=== PATIENT | male | born 1935 | race Caucasian/White ===

== ENCOUNTER → 2017-12-17 | Outpatient (CLI) | payer BC | END | disposition home or self-care (01) | LOC: C.LABSPEC 10:38 | PROVIDERS: ATTEND Family Medicine | DX: R33.9 Retention of urine, unspecified (principal); N39.0 Urinary tract infection, site not specified ==

== ENCOUNTER 2019-10-04 12:43 | Inpatient (IN) ==
[~2019-10-04 12:43] MED LIST: RAPID SEQUENCE INDUCTION BAG ONE
[2019-10-04] MEDS ORDERED: ETOMIDATE 2 MG/ML 20 ML VIAL IV ONE ×2 (12:45→19:40)
[2019-10-04] MEDS ORDERED: LORazepam 2 MG/4 ML VIAL IV ONE (12:50)
[2019-10-04] MEDS ORDERED: LACTATED RINGER'S 1,000 ML IV ONE (12:52)
[2019-10-04] MEDS ORDERED: CEFEPIME 2,000 MG/20 ML VIAL IV STA (12:52)
[2019-10-04] MEDS ORDERED: VANCOMYCIN HCL 1,750 MG in SODIUM CHLORIDE 0.9% 500 ML IV STA (13:01)
[2019-10-04] MEDS ORDERED: SODIUM CHLORIDE 0.9% 1000ML 1,000 ML IV ONE (13:09)
[2019-10-04] MEDS ORDERED: SODIUM CHLORIDE 0.9% 1000ML 500 ML IV ONE (13:09)
[2019-10-04 13:10] LABS: Basophils # (auto) 0.01 K/uL (0-0.2); Basophils % (auto) 0.1 %; Hematocrit (blood only) 48.4 % (42-52); Hemoglobin 15.6 g/dL (14.0-18.0); Immature Granulocytes # (auto) 0.05 K/uL (0.00-0.02); Immature Granulocytes % (auto) 0.4 %; Lymphocytes # (auto) 0.62 K/uL (1.2-3.4); Lymphocytes % (auto) 4.8 %; Mean Corpuscular Hemoglobin 31.7 pg (25-34); Mean Corpuscular Hgb Conc 32.2 g/dL (32-36); Mean Corpuscular Volume 98.4 fL (80-100); Mean Platelet Volume 10.5 fL (7.4-10.4); Monocytes # (auto) 0.53 K/uL (0.11-0.59); Monocytes % (auto) 4.1 %; Neutrophils # (auto) 11.84 K/uL (1.4-6.5); Neutrophils % (auto) 90.6 %; Platelet Count 233 K/uL (130-400); RDW Coefficient of Variation 14.3 % (11.5-14.5); RDW Standard Deviation 51.1 fL (36.4-46.3); Red Blood Count 4.92 M/uL (4.7-6.1); White Blood Count 13.05 K/uL (4.8-10.8)
[2019-10-04] MEDS ORDERED: ALBUT/IPRATROP 3MG/0.5MG NEB 3 ML VIAL NEB ONE (13:20)
[2019-10-04 13:25] LABS: INR 1.3 (0.9-1.1); Partial Thromboplastin Ratio 1.1; Partial Thromboplastin Time 29.6 Seconds (21.0-31.0)
[2019-10-04 13:28] LABS: Alanine Aminotransferase 22 U/L (12-78); Aspartate Aminotransferase 23 U/L (15-37); BUN Creatinine Ratio 17.8 (10-20); Blood Urea Nitrogen 23 mg/dl (7-18); Calcium 9.4 mg/dl (8.5-10.1); Carbon Dioxide 33 mmol/L (21-32); Chloride 100 mmol/L (98-107); Est GFR (African American) 58.6; Est GFR (Non-African American) 50.6; Glucose 126 mg/dl (70-99); Magnesium 2.1 mg/dl (1.8-2.4); Potassium 4.5 mmol/L (3.5-5.1); Sodium 136 mmol/L (136-145)
[2019-10-04 13:33] LABS: Albumin Globulin Ratio 0.6 (0.9-2); Alkaline Phosphatase 88 U/L (45-117); Bilirubin,Total 0.7 mg/dl (0.2-1); Globulin 4.8 gm/dl (2.5-4.0); Total Protein 7.8 gm/dl (6.4-8.2); Troponin I < 0.015 ng/ml (0-0.045)
[2019-10-04 13:34] LABS: iSTAT Arterial Blood Gas HCO3 32 meg/L (19-24); iSTAT Arterial Blood Gas pCO2 91 mmHg (35-46); iSTAT Arterial Blood Gas pH 7.16 (7.35-7.45); iSTAT Arterial Blood Gas pO2 64 mmHg (80-95); iSTAT Carbon Dioxide 35 mmol/L (24-31); iSTAT Hematocrit 48 % (42-52); iSTAT Hemoglobin 16.3 g/dl (14.0-18.0); iSTAT Potassium 4.5 mmol/L (3.3-5.0); iSTAT Sodium 137 mmol/L (135-144)
--- NOTE | 2019-10-04 13:37 | XRay Report ---
XR chest 1V portable CLINICAL HISTORY: Sepsis. COMPARISON STUDY: No previous studies for comparison. FINDINGS: Tip of endotracheal tube is 3.7 cm above the wade. There is no pneumothorax. Skin fold pr ojects over the left hemithorax. Left basilar consolidation with a suspected small left pleural effus ion is noted. There is no evidence for pulmonary edema. Cardiac size is within normal limits. Lucency projecting over the upper abdomen. There is equivocal visualization of the falciform ligament. IMPRESSION: 1. Tip of endotracheal tube 3.7 cm above the wade. 2. Left basilar consolidation which suggests pneumonia/aspiration. Small left pleural effusion. No pn eumothorax. 3. Lucency projecting over the upper abdomen. This is probably artifactual however pneumoperitoneum c annot be excluded. Findings discussed with Dr. Lay at time of dictation. ACT 112: Negative or not required by law. Electronically signed by: Nick Griffith M.D. 10/04/2019 1:36 PM
[2019-10-04 13:46] LABS: Appearance Urine Cloudy (Clear); Bacteria Urine Automated Negative (Negative); Bilirubin Urine Negative (Negative); Blood Urine 2+ (Negative); Color Urine Dark Yellow; Epithelial Cell Urine Auto 0-5 /lpf (0-5); Glucose Urine UA Negative (Negative); Ketones Urine 1+ (Negative); Leukocyte Esterase Urine 1+ (Negative); Nitrite Urine Negative (Negative); Protein Urine 1+ (Negative); RBC Urine Automated 0-4 /hpf (0-4); Specific Gravity Urine 1.024 (1.000-1.030); Urobilinogen Urine Negative (Negative); WBC Urine Automated >30 /hpf (0-5)
[2019-10-04] MEDS ORDERED: fentaNYL citrate 100 MCG/2 ML VIAL IV STA (13:49)
[2019-10-04] MEDS ORDERED: LORazepam 1 MG/2 ML VIAL IV STA ×2 (13:49→15:09)
[2019-10-04] MEDS ORDERED: fentaNYL citrate 100 MCG/2 ML VIAL ONE ×2 (13:51→17:45)
--- NOTE | 2019-10-04 13:58 | XRay Report ---
XR chest 1V portable HISTORY: 84 years-old Male s/p central line left sc status post placement of a left subclavian centr al venous catheter COMPARISON: Chest radiograph of same day at 1:01 PM TECHNIQUE: Semierect AP view of the chest FINDINGS: Status post placement of a left subclavian central venous catheter, distal tip terminating to the rig ht of midline in the expected location of the proximal SVC. Endotracheal tube overlies the midline, 4 .4 cm superior to the wade. Calcified plaque of the thoracic aortic arch. Cardiac silhouette is enl arged, unchanged. Persistent left greater than right bibasilar consolidation with mildly improved aer ation of the lung bases. Mild interstitial coarsening. Lucency projecting over the upper abdomen rede monstrated. Degenerative changes of the shoulders and spine. IMPRESSION: 1. Status post placement of a left subclavian central venous catheter, distal tip terminating in the expected location of the mid SVC. No postprocedural pneumothorax. 2. Endotracheal tube terminates 4.4 cm superior to the wade. 3. Left greater than right bibasilar consolidation, mildly improved from comparison. 4. Persistent lucency of the upper abdomen, pneumoperitoneum versus artifact are considerations. ACT 112: Negative or not required by law. The above report was generated using voice recognition software. It may contain grammatical, syntax o r spelling errors. Electronically signed by: Dimas Jarvis M.D. 10/04/2019 1:57 PM
--- NOTE | 2019-10-04 14:01 | Emergency Department Note ---
Entered by Oksana Valdez acting as a scribe for Merritt Lay DO History of Present Illness General Chief complaint: Respiratory Distress Source: EMS Mode of arrival: EMS History of Present Illness Provider complaint: respiratory distress Onset (ago): hour(s) ([employer]) Location: chest Relieved By: + none Exacerbated By: + none Associated symptoms: + cough The patient is a 84 year old male who presents to the Emergency Room with complaints of respiratory distress which started prior to arrival. Per EMS, the patient developed a cough over the past several days. They report that the patient was coughing up green mucous. They state that the patient was found prior to the call with an O2 stat in the 60s. On arrival, they report that the patient's blood sugar was 113 and his heart rate was in the 150s. They mention that the patient was on CPAP for 10-15 minutes which did not alleviate his symptoms. They note that the patient is a resident of [facility]. Home Medications Home Medications Medication Instructions Recorded Confirmed Type atorvastatin 10 mg tablet 10 mg PO QDD tab 12/20/18 10/04/19 History docusate sodium 100 mg tablet 100 mg PO BID tab 12/20/18 10/04/19 History ferrous sulfate 325 mg (65 mg 325 mg PO QDB tab 12/20/18 10/04/19 History iron) tablet finasteride 5 mg tablet 5 mg PO DAILY #30 tab 12/20/18 10/04/19 History tamsulosin 0.4 mg capsule 0.4 mg PO QDD #30 cap 12/20/18 10/04/19 History acetaminophen [Tylenol] 650 mg PO Q4H PRN 10/04/19 10/04/19 History bisacodyl [Dulcolax (bisacodyl)] 10 mg ND DAILY PRN 10/04/19 10/04/19 History cholecalciferol (vitamin D3) 3,000 unit PO DAILY 10/04/19 10/04/19 History [Vitamin D3] cyanocobalamin (vitamin B-12) 1,000 mcg PO DAILY 10/04/19 10/04/19 History dextromethorphan-guaifenesin 5 ml PO Q6H 10/04/19 10/04/19 History heparin (porcine) 5,000 unit SUBCUT Q12H 10/04/19 10/04/19 History ipratropium-albuterol 3 ml INHALATION QID 10/04/19 10/04/19 History levofloxacin 500 mg PO DAILY 10/04/19 10/04/19 History levothyroxine [Synthroid] 150 mcg PO DAILY 10/04/19 10/04/19 History metoprolol succinate [Toprol XL] 50 mg PO DAILY 10/04/19 10/04/19 History pantoprazole [Protonix] 40 mg PO DAILYBB 10/04/19 10/04/19 History polyethylene glycol 3350 [Miralax] 17 g PO QDL PRN 10/04/19 10/04/19 History prednisone 10 mg PO TID 10/04/19 10/04/19 History sennosides-docusate sodium [Senna 1 tab-cap PO QDL PRN 10/04/19 10/04/19 History with Docusate Sodium] sodium phosphates [Enema] 133 ml ND DAILY PRN 10/04/19 10/04/19 History Allergies Allergy/AdvReac Type Severity Reaction Status Date / Time No Known Drug Allergies Allergy Verified 10/04/19 13:39 Past Med/Surg History Medical History (Updated 10/04/19 @ 15:02 by Merritt Lay DO) Anemia (Acute) Congestive heart failure (Acute) Hyperlipidemia (Acute) Hypertension (Acute) Hypothyroidism (Acute) Surgical History No significant past surgical history Social History Feels Safe at Home: Yes Smoking Status: Never smoker Review of Systems See HPI for pertinent positives & negatives. and A total of 10 systems reviewed and were otherwise negative Physical Exam Vital Signs Vital Signs - 24 hr 10/04/19 12:42 10/04/19 12:46 10/04/19 12:49 Temperature 37.9 C H Temperature Source Rectal Pulse Rate 121 H 132 H 132 H Pulse Rate [Apical] Pulse Rate from SpO2 Sensor 133 H Pulse Rhythm Pulse Rhythm [Apical] Respiratory Rate 42 H 32 H Respiratory Effort / Characteristics Short of Breath Respiratory Depth Shallow Respiratory Pattern Rapid/Shallow Blood Pressure 150/87 H 150/87 H Blood Pressure [Left Arm] Blood Pressure Mean 108 111 Blood Pressure Mean [Left Arm] Pulse Oximetry 82 L 78 L 84 L Oxygen Delivery Method BiPAP BiPAP Fraction of Inspired Oxygen 100 SaO2/FiO2 Ratio Sepsis Recent Fever Within 48 Hours Yes Sepsis New/Unexplained Change in Mental Status Yes Sepsis Action Taken by Nursing Physician Notified End-Tidal CO2 43 10/04/19 12:52 10/04/19 12:56 10/04/19 13:00 Temperature Temperature Source Pulse Rate 120 H 117 H 123 H Pulse Rate [Apical] Pulse Rate from SpO2 Sensor 119 H 119 H Pulse Rhythm Pulse Rhythm [Apical] Respiratory Rate 15 Respiratory Effort / Characteristics Respiratory Depth Respiratory Pattern Blood Pressure 94/60 L 96/81 L Blood Pressure [Left Arm] Blood Pressure Mean 62 85 Blood Pressure Mean [Left Arm] Pulse Oximetry 90 87 L 86 L Oxygen Delivery Method Mechanical Vent Mechanical Vent Fraction of Inspired Oxygen 100 SaO2/FiO2 Ratio Sepsis Recent Fever Within 48 Hours Sepsis New/Unexplained Change in Mental Status Sepsis Action Taken by Nursing End-Tidal CO2 49 55 47 10/04/19 13:05 10/04/19 13:10 10/04/19 13:15 Temperature Temperature Source Pulse Rate 123 H 128 H 123 H Pulse Rate [Apical] Pulse Rate from SpO2 Sensor 121 H 112 H 107 H Pulse Rhythm Pulse Rhythm [Apical] Respiratory Rate Respiratory Effort / Characteristics Respiratory Depth Respiratory Pattern Blood Pressure 86/56 L 77/59 L 69/54 L Blood Pressure [Left Arm] Blood Pressure Mean 81 64 64 Blood Pressure Mean [Left Arm] Pulse Oximetry 87 L 85 L 86 L Oxygen Delivery Method Mechanical Vent Mechanical Vent Mechanical Vent Fraction of Inspired Oxygen SaO2/FiO2 Ratio Sepsis Recent Fever Within 48 Hours Sepsis New/Unexplained Change in Mental Status Sepsis Action Taken by Nursing End-Tidal CO2 42 39 34 10/04/19 13:19 10/04/19 13:25 10/04/19 13:26 Temperature Temperature Source Pulse Rate 124 H Pulse Rate [Apical] Pulse Rate from SpO2 Sensor 107 H Pulse Rhythm Pulse Rhythm [Apical] Respiratory Rate 20 22 Respiratory Effort / Characteristics Mechanically Ventilated Respiratory Depth Respiratory Pattern Blood Pressure 110/52 L Blood Pressure [Left Arm] Blood Pressure Mean 91 Blood Pressure Mean [Left Arm] Pulse Oximetry 95 94 Oxygen Delivery Method Mechanical Vent Mechanical Vent Fraction of Inspired Oxygen 100 SaO2/FiO2 Ratio Sepsis Recent Fever Within 48 Hours Sepsis New/Unexplained Change in Mental Status Sepsis Action Taken by Nursing End-Tidal CO2 38 10/04/19 13:30 10/04/19 13:35 10/04/19 13:38 Temperature Temperature Source Pulse Rate 115 H 124 H 125 H Pulse Rate [Apical] Pulse Rate from SpO2 Sensor 118 H 121 H Pulse Rhythm Regular Pulse Rhythm [Apical] Respiratory Rate 22 Respiratory Effort / Characteristics Respiratory Depth Respiratory Pattern Blood Pressure 105/71 109/76 Blood Pressure [Left Arm] Blood Pressure Mean 81 92 Blood Pressure Mean [Left Arm] Pulse Oximetry 96 97 97 Oxygen Delivery Method Mechanical Vent Mechanical Vent Mechanical Vent Fraction of Inspired Oxygen 100 SaO2/FiO2 Ratio 97 Sepsis Recent Fever Within 48 Hours Sepsis New/Unexplained Change in Mental Status Sepsis Action Taken by Nursing End-Tidal CO2 47 40 10/04/19 13:40 10/04/19 13:45 10/04/19 13:50 Temperature Temperature Source Pulse Rate 120 H 111 H 117 H Pulse Rate [Apical] Pulse Rate from SpO2 Sensor 118 H 114 H 111 H Pulse Rhythm Pulse Rhythm [Apical] Respiratory Rate Respiratory Effort / Characteristics Respiratory Depth Respiratory Pattern Blood Pressure 115/78 98/66 L 106/61 Blood Pressure [Left Arm] Blood Pressure Mean 87 76 64 Blood Pressure Mean [Left Arm] Pulse Oximetry 96 98 96 Oxygen Delivery Method Mechanical Vent Mechanical Vent Mechanical Vent Fraction of Inspired Oxygen SaO2/FiO2 Ratio Sepsis Recent Fever Within 48 Hours Sepsis New/Unexplained Change in Mental Status Sepsis Action Taken by Nursing End-Tidal CO2 44 44 35 10/04/19 13:55 10/04/19 14:15 10/04/19 14:21 Temperature Temperature Source Pulse Rate 112 H Pulse Rate [Apical] 113 H Pulse Rate from SpO2 Sensor 115 H 98 H Pulse Rhythm Pulse Rhythm [Apical] Regular Respiratory Rate 21 20 Respiratory Effort / Characteristics Respiratory Depth Respiratory Pattern Blood Pressure 107/72 81/65 L Blood Pressure [Left Arm] 66/47 L Blood Pressure Mean 83 70 Blood Pressure Mean [Left Arm] 53 Pulse Oximetry 98 91 92 Oxygen Delivery Method Mechanical Vent Mechanical Vent Mechanical Vent Fraction of Inspired Oxygen SaO2/FiO2 Ratio Sepsis Recent Fever Within 48 Hours Sepsis New/Unexplained Change in Mental Status Sepsis Action Taken by Nursing End-Tidal CO2 10/04/19 14:25 10/04/19 14:30 10/04/19 14:35 Temperature Temperature Source Pulse Rate 106 H 121 H 111 H Pulse Rate [Apical] Pulse Rate from SpO2 Sensor 99 H 101 H 108 H Pulse Rhythm Pulse Rhythm [Apical] Respiratory Rate 21 Respiratory Effort / Characteristics Respiratory Depth Respiratory Pattern Blood Pressure 77/53 L 85/53 L 84/62 L Blood Pressure [Left Arm] Blood Pressure Mean 56 55 71 Blood Pressure Mean [Left Arm] Pulse Oximetry 95 96 97 Oxygen Delivery Method Mechanical Vent Mechanical Vent Mechanical Vent Fraction of Inspired Oxygen SaO2/FiO2 Ratio Sepsis Recent Fever Within 48 Hours Sepsis New/Unexplained Change in Mental Status Sepsis Action Taken by Nursing End-Tidal CO2 22 45 10/04/19 14:40 10/04/19 14:45 10/04/19 14:46 Temperature Temperature Source Pulse Rate 106 H 111 H 94 H Pulse Rate [Apical] Pulse Rate from SpO2 Sensor 111 H 107 H Pulse Rhythm Pulse Rhythm [Apical] Respiratory Rate 20 Respiratory Effort / Characteristics Respiratory Depth Respiratory Pattern Blood Pressure 94/80 L 109/62 Blood Pressure [Left Arm] Blood Pressure Mean 85 92 Blood Pressure Mean [Left Arm] Pulse Oximetry 98 98 94 Oxygen Delivery Method Mechanical Vent Mechanical Vent Fraction of Inspired Oxygen 100 SaO2/FiO2 Ratio Sepsis Recent Fever Within 48 Hours Sepsis New/Unexplained Change in Mental Status Sepsis Action Taken by Nursing End-Tidal CO2 35 35 35 10/04/19 14:50 Temperature Temperature Source Pulse Rate 113 H Pulse Rate [Apical] Pulse Rate from SpO2 Sensor 114 H Pulse Rhythm Pulse Rhythm [Apical] Respiratory Rate Respiratory Effort / Characteristics Respiratory Depth Respiratory Pattern Blood Pressure 102/70 Blood Pressure [Left Arm] Blood Pressure Mean 73 Blood Pressure Mean [Left Arm] Pulse Oximetry 98 Oxygen Delivery Method Mechanical Vent Fraction of Inspired Oxygen SaO2/FiO2 Ratio Sepsis Recent Fever Within 48 Hours Sepsis New/Unexplained Change in Mental Status Sepsis Action Taken by Nursing End-Tidal CO2 33 CONSTITUTIONAL/VITAL SIGNS: Reviewed / noted above. GENERAL: Non-toxic in appearance. INTEGUMENTARY: Warm, dry, and [place]. HEAD: Normocephalic. EYES: without scleral icterus or trauma. ENT/OROPHARYNX: clear and moist. LYMPHADENOPATHY/NECK: Is supple without lymphadenopathy or meningismus. RESPIRATORY: Significant respiratory depression. Coarse breath sounds bilaterally, scattered wheezes. CARDIOVASCULAR: Regular rate and rhythm. GI/ABDOMEN: Soft and mild tenderness. No organomegaly or pulsatile mass. No rebound or guarding. Normal bowel sounds. EXTREMITIES: Warm and well perfused. BACK: No CVA tenderness. NEUROLOGICAL: Intact without focal deficits. PSYCHIATRIC: normal affect. MUSCULOSKELETAL: Normally developed with good muscle tone. Procedures Free Text Procedures Left subclavian central line placement: This was placed due to the poor IV access and the necessity to administer m edications/IV fluids and to obtain blood work. The procedure was done under sterile technique. Gown, mask, hair net, sterile cover for ultrasound. It was performed under sterile ultrasound guidance. The Seldinger technique was used. The triple lumen catheter was placed without difficulty on the initial attempt. Each port flushed well and gave blood. The triple lumen catheter was sutured in place. A sterile dressing was placed on the catheter site. The patient tolerated the procedure well. No complication. Endotracheal intubation: Reason: Acute respiratory failure RSI was performed using 20 mg of IV etomidate. The patient was intubated successfully and without difficulty with a MAC 4 blade. The endotracheal tube was visualized passing through the cords. The patient did not have any hypoxia. There was no hypotension. There was no complication. End-tidal CO2 detection was present. Bilateral breath sounds are present with good tube humidification. No epigastric sounds. It was taped at 24 cm at the lip line. Size 8.0 tube. ABG Interpretation ABG Interpretation 1: ABG Results: pH is 7.16, PCO2 is 91, PO2 is 62 and bicarb is 32 Interpretation: respiratory acidosis Course Course 1244: The patient was evaluated in room B1, and a complete history and physical examination were performed. 1248: The patient was given 20 mg of Etomidate. 1250: Intubation was placed, see procedure not for details. 1252: The patient was given 2 doses of Ativan. 1325: A central line was placed, see procedural note for details. 1430: I reevaluated the patient and updated his family on his results. 1434: I reviewed the patient's case with Dr. Cross- [facility] ICU. He recommends that the patient be given 2 more doses of bicarbonate and be taken to the ICU. 1436: I reviewed the patient's case with Amanda Najera. Dr. Ferrari- Hospital[facility] will evaluate the patient for further management. Administered Medications Vancomycin HCl 1,750 mg/ (Sodium Chloride) 535 mls @ 200 mls/hr IV NOW STA Stop: 10/04/19 15:41 Last Admin: 10/04/19 13:30 Dose: 200 mls/hr Documented by: [id number] Norepinephrine Bitartrate 4 mg (/ Dextrose) 254 mls @ 15.24 mls/hr IV .[id number] STA; Protocol Stop: 10/05/19 07:10 Last Admin: 10/04/19 14:30 Dose: 0.05 mcg/kg/min, 15.2 mls/hr Documented by: [id number] Cosigned by: [id number] Discontinued Medications Albuterol (Duoneb) 12 ml NEB ONE ONE Stop: 10/04/19 13:21 Last Admin: 10/04/19 13:23 Dose: 12 ml Documented by: [id number] Etomidate (Amidate) 20 mg IV ONE ONE Stop: 10/04/19 12:46 Last Admin: 10/04/19 12:48 Dose: 20 mg Documented by: [id number] Fentanyl Citrate (Fentanyl Citrate) 50 mcg IV NOW STA Stop: 10/04/19 13:50 Last Admin: 10/04/19 13:56 Dose: 50 mcg Documented by: [id number] Fentanyl Citrate (Fentanyl Citrate) Confirm Administered Dose 100 mcg .ROUTE .STK-MED ONE Stop: 10/04/19 13:52 Last Admin: 10/04/19 14:16 Dose: Not Given Documented by: [id number] Lactated Ringer's (Lr) 1,000 mls @ 999 mls/hr IV .Q1H1M ONE Stop: 10/04/19 13:52 Last Infusion: 10/04/19 14:19 Dose: 0 mls/hr Documented by: [id number] Admin: 10/04/19 13:10 Dose: 999 mls/hr Documented by: [id number] Cefepime HCl (Maxipime) 2,000 mg in 20 mls @ 5 mls/min IV NOW STA; Protocol Stop: 10/04/19 12:55 Last Admin: 10/04/19 13:25 Dose: 5 mls/min Documented by: [id number] Lorazepam (Ativan) 2 mg in 4 mls @ 2 mls/min IV ONE ONE Stop: 10/04/19 12:51 Last Admin: 10/04/19 12:52 Dose: 2 mls/min Documented by: [id number] Sodium Chloride (Nss 1000ml) 500 mls @ 999 mls/hr IV .Q31M ONE Stop: 10/04/19 13:39 Last Infusion: 10/04/19 14:56 Dose: 0 mls/hr Documented by: [id number] Admin: 10/04/19 14:19 Dose: 999 mls/hr Documented by: [id number] Sodium Chloride (Nss 1000ml) 1,000 mls @ 999 mls/hr IV .Q1H1M ONE Stop: 10/04/19 14:09 Last Infusion: 10/04/19 14:19 Dose: 0 mls/hr Documented by: [id number] Admin: 10/04/19 12:55 Dose: 999 mls/hr Documented by: [id number] Lorazepam (Ativan) 1 mg in 2 mls @ 2 mls/min IV NOW STA Stop: 10/04/19 13:50 Last Admin: 10/04/19 13:56 Dose: 2 mls/min Documented by: [id number] Sodium Bicarbonate (Sodium Bicarbonate 8.4%) 100 meq IV NOW STA Stop: 10/04/19 14:34 Last Admin: 10/04/19 15:06 Dose: 100 meq Documented by: [id number] Critical Care Time Critical Care Time: Yes Total Critical Care Time: 90 I have personally spent 90 minutes of critical care time in the direct management of this patient. This includes bedside care, interpretation of diagnostic studies, and testing, discussion with consultants, patient, and family members, and other required patient management activities. This 90 minutes is in excess of all separately billable procedures. Medical Decision Making Differential Diagnosis Differential diagnosis: Etiologies such as cardiac ischemia, aortic dissection, pulmonary embolism, electrolyte abnormality, acidosis, tension pneumothorax, hypothermia, hypovolemia, intracranial event, as well as others were entertained. Medical Records Attestation: I reviewed the patient's medical records. Home Medications Current Medication List: was personally reviewed by me Laboratory Data Attestation: I reviewed the patient's lab results. Result diagrams: 10/04/19 12:55 10/04/19 12:55 Lab Results 10/04/19 10/04/19 10/04/19 Range/Units 12:55 12:55 12:55 WBC 13.05 H (4.8-10.8) K/uL RBC 4.92 (4.7-6.1) M/uL Hgb 15.6 (14.0-18.0) g/dL POC Hgb (14.0-18.0) g/dl Hct 48.4 (42-52) % POC Hct (42-52) % MCV 98.4 (80-100) fL MCH 31.7 (25-34) pg MCHC 32.2 (32-36) g/dL RDW Std Deviation 51.1 H (36.4-46.3) fL RDW Coeff of Regi 14.3 (11.5-14.5) % Plt Count 233 (130-400) K/uL MPV 10.5 H (7.4-10.4) fL Immature Gran % (Auto) 0.4 % Neut % (Auto) 90.6 % Lymph % (Auto) 4.8 % [facility] % (Auto) 4.1 % Eos % (Auto) 0.0 % Baso % (Auto) 0.1 % Immature Gran # (Auto) 0.05 H (0.00-0.02) K/uL Neut # (Auto) 11.84 H (1.4-6.5) K/uL Lymph # (Auto) 0.62 L (1.2-3.4) K/uL [facility] # (Auto) 0.53 (0.11-0.59) K/uL Eos # (Auto) 0.00 (0-0.5) K/uL Baso # (Auto) 0.01 (0-0.2) K/uL PT 13.0 H (9.0-12.0) Seconds INR 1.3 H (0.9-1.1) APTT 29.6 (21.0-31.0) Seconds PTT Ratio 1.1 POC pH (7.35-7.45) POC pCO2 (35-46) mmHg POC pO2 (80-95) mmHg POC HCO3 (19-24) ady/L POC Total CO2 (24-31) mmol/L POC Base Excess (-9-1.8) ady/L POC Sodium (135-144) mmol/L Sodium 136 (136-145) mmol/L POC Potassium (3.3-5.0) mmol/L Potassium 4.5 (3.5-5.1) mmol/L Chloride 100 (98-107) mmol/L Carbon Dioxide 33 H (21-32) mmol/L Anion Gap 3.0 (3-11) BUN 23 H (7-18) mg/dl Creatinine 1.29 (0.6-1.4) mg/dl Est Cr Clr Drug Dosing Not Reportable Est GFR ( Amer) 58.6 Est GFR (Non-Af Amer) 50.6 BUN/Creatinine Ratio 17.8 (10-20) Glucose 126 H (70-99) mg/dl Lactate (0.4-2.0) mmol/L Calcium 9.4 (8.5-10.1) mg/dl Magnesium 2.1 (1.8-2.4) mg/dl Total Bilirubin 0.7 (0.2-1) mg/dl AST 23 (15-37) U/L ALT 22 (12-78) U/L Alkaline Phosphatase 88 (45-117) U/L Troponin I < 0.015 (0-0.045) ng/ml Total Protein 7.8 (6.4-8.2) gm/dl Albumin 3.0 L (3.4-5.0) gm/dl Globulin 4.8 H (2.5-4.0) gm/dl Albumin/Globulin Ratio 0.6 L (0.9-2) Urine Color Urine Appearance (Clear) Urine pH (4.5-7.5) Ur Specific [place] (1.000-1.030) Urine Protein (Negative) Urine Glucose (UA) (Negative) Urine Ketones (Negative) Urine Blood (Negative) Urine Nitrite (Negative) Urine Bilirubin (Negative) Urine Urobilinogen (Negative) Ur Leukocyte Esterase (Negative) Urine WBC (Auto) (0-5) /hpf Urine RBC (Auto) (0-4) /hpf U Hyaline Cast (Auto) (0-5) /lpf U Epithel Cells (Auto) (0-5) /lpf Urine Bacteria (Auto) (Negative) Influenza Type A (PCR) (Neg) Influenza Type B (PCR) (Neg) 10/04/19 10/04/19 10/04/19 Range/Units 12:55 13:15 13:20 WBC (4.8-10.8) K/uL RBC (4.7-6.1) M/uL Hgb (14.0-18.0) g/dL POC Hgb 16.3 (14.0-18.0) g/dl Hct (42-52) % POC Hct 48 (42-52) % MCV (80-100) fL MCH (25-34) pg MCHC (32-36) g/dL RDW Std Deviation (36.4-46.3) fL RDW Coeff of Regi (11.5-14.5) % Plt Count (130-400) K/uL MPV (7.4-10.4) fL Immature Gran % (Auto) % Neut % (Auto) % Lymph % (Auto) % [facility] % (Auto) % Eos % (Auto) % Baso % (Auto) % Immature Gran # (Auto) (0.00-0.02) K/uL Neut # (Auto) (1.4-6.5) K/uL Lymph # (Auto) (1.2-3.4) K/uL [facility] # (Auto) (0.11-0.59) K/uL Eos # (Auto) (0-0.5) K/uL Baso # (Auto) (0-0.2) K/uL PT (9.0-12.0) Seconds INR (0.9-1.1) APTT (21.0-31.0) Seconds PTT Ratio POC pH 7.16 L* (7.35-7.45) POC pCO2 91 H (35-46) mmHg POC pO2 64 L (80-95) mmHg POC HCO3 32 H (19-24) ady/L POC Total CO2 35 H (24-31) mmol/L POC Base Excess 4.0 H (-9-1.8) ady/L POC Sodium 137 (135-144) mmol/L Sodium (136-145) mmol/L POC Potassium 4.5 (3.3-5.0) mmol/L Potassium (3.5-5.1) mmol/L Chloride (98-107) mmol/L Carbon Dioxide (21-32) mmol/L Anion Gap (3-11) BUN (7-18) mg/dl Creatinine (0.6-1.4) mg/dl Est Cr Clr Drug Dosing Est GFR ( Amer) Est GFR (Non-Af Amer) BUN/Creatinine Ratio (10-20) Glucose (70-99) mg/dl Lactate 1.4 (0.4-2.0) mmol/L Calcium (8.5-10.1) mg/dl Magnesium (1.8-2.4) mg/dl Total Bilirubin (0.2-1) mg/dl AST (15-37) U/L ALT (12-78) U/L Alkaline Phosphatase (45-117) U/L Troponin I (0-0.045) ng/ml Total Protein (6.4-8.2) gm/dl Albumin (3.4-5.0) gm/dl Globulin (2.5-4.0) gm/dl Albumin/Globulin Ratio (0.9-2) Urine Color Urine Appearance (Clear) Urine pH (4.5-7.5) Ur Specific [place] (1.000-1.030) Urine Protein (Negative) Urine Glucose (UA) (Negative) Urine Ketones (Negative) Urine Blood (Negative) Urine Nitrite (Negative) Urine Bilirubin (Negative) Urine Urobilinogen (Negative) Ur Leukocyte Esterase (Negative) Urine WBC (Auto) (0-5) /hpf Urine RBC (Auto) (0-4) /hpf U Hyaline Cast (Auto) (0-5) /lpf U Epithel Cells (Auto) (0-5) /lpf Urine Bacteria (Auto) (Negative) Influenza Type A (PCR) Pos for Influ A A* (Neg) Influenza Type B (PCR) Neg for Influ B (Neg) 10/04/19 10/04/19 Range/Units 13:30 14:31 WBC (4.8-10.8) K/uL RBC (4.7-6.1) M/uL Hgb (14.0-18.0) g/dL POC Hgb 13.9 L (14.0-18.0) g/dl Hct (42-52) % POC Hct 41 L (42-52) % MCV (80-100) fL MCH (25-34) pg MCHC (32-36) g/dL RDW Std Deviation (36.4-46.3) fL RDW Coeff of Regi (11.5-14.5) % Plt Count (130-400) K/uL MPV (7.4-10.4) fL Immature Gran % (Auto) % Neut % (Auto) % Lymph % (Auto) % [facility] % (Auto) % Eos % (Auto) % Baso % (Auto) % Immature Gran # (Auto) (0.00-0.02) K/uL Neut # (Auto) (1.4-6.5) K/uL Lymph # (Auto) (1.2-3.4) K/uL [facility] # (Auto) (0.11-0.59) K/uL Eos # (Auto) (0-0.5) K/uL Baso # (Auto) (0-0.2) K/uL PT (9.0-12.0) Seconds INR (0.9-1.1) APTT (21.0-31.0) Seconds PTT Ratio POC pH 7.20 L (7.35-7.45) POC pCO2 74 H (35-46) mmHg POC pO2 92 (80-95) mmHg POC HCO3 29 H (19-24) ady/L POC Total CO2 31 (24-31) mmol/L POC Base Excess 1.0 (-9-1.8) ady/L POC Sodium 138 (135-144) mmol/L Sodium (136-145) mmol/L POC Potassium 4.3 (3.3-5.0) mmol/L Potassium (3.5-5.1) mmol/L Chloride (98-107) mmol/L Carbon Dioxide (21-32) mmol/L Anion Gap (3-11) BUN (7-18) mg/dl Creatinine (0.6-1.4) mg/dl Est Cr Clr Drug Dosing Est GFR ( Amer) Est GFR (Non-Af Amer) BUN/Creatinine Ratio (10-20) Glucose (70-99) mg/dl Lactate (0.4-2.0) mmol/L Calcium (8.5-10.1) mg/dl Magnesium (1.8-2.4) mg/dl Total Bilirubin (0.2-1) mg/dl AST (15-37) U/L ALT (12-78) U/L Alkaline Phosphatase (45-117) U/L Troponin I (0-0.045) ng/ml Total Protein (6.4-8.2) gm/dl Albumin (3.4-5.0) gm/dl Globulin (2.5-4.0) gm/dl Albumin/Globulin Ratio (0.9-2) Urine Color Dark Yellow Urine Appearance Cloudy A (Clear) Urine pH 5.0 (4.5-7.5) Ur Specific [place] 1.024 (1.000-1.030) Urine Protein 1+ H (Negative) Urine Glucose (UA) Negative (Negative) Urine Ketones 1+ H (Negative) Urine Blood 2+ H (Negative) Urine Nitrite Negative (Negative) Urine Bilirubin Negative (Negative) Urine Urobilinogen Negative (Negative) Ur Leukocyte Esterase 1+ H (Negative) Urine WBC (Auto) >30 H (0-5) /hpf Urine RBC (Auto) 0-4 (0-4) /hpf U Hyaline Cast (Auto) 0 (0-5) /lpf U Epithel Cells (Auto) 0-5 (0-5) /lpf Urine Bacteria (Auto) Negative (Negative) Influenza Type A (PCR) (Neg) Influenza Type B (PCR) (Neg) Imaging Data Radiologist's Impression: Radiology results as stated below per my review and the radiologist's interpretation: XR chest 1V portable CLINICAL HISTORY: Sepsis. COMPARISON STUDY: No previous studies for comparison. FINDINGS: Tip of endotracheal tube is 3.7 cm above the wade. There is no pneumothorax. Skin fold projects over the left hemithorax. Left basilar consolidation with a suspected small left pleural effusion is noted. There is no evidence for pulmonary edema. Cardiac size is within normal limits. Lucency projecting over the upper abdomen. There is equivocal visualization of the falciform ligament. IMPRESSION: 1. Tip of endotracheal tube 3.7 cm above the wade. 2. Left basilar consolidation which suggests pneumonia/aspiration. Small left pleural effusion. No pneumothorax. 3. Lucency projecting over the upper abdomen. This is probably artifactual however pneumoperitoneum cannot be excluded. Findings discussed with Dr. Lay at time of dictation. ACT 112: Negative or not required by law. Electronically signed by: Nick Griffith M.D. 10/04/2019 1:36 PM XR chest 1V portable HISTORY: 84 years-old Male s/p central line left sc status post placement of a left subclavian central venous catheter COMPARISON: Chest radiograph of same day at 1:01 PM TECHNIQUE: Semierect AP view of the chest FINDINGS: Status post placement of a left subclavian central venous catheter, distal tip terminating to the right of midline in the expected location of the proximal SVC. Endotracheal tube overlies the midline, 4.4 cm superior to the wade. Calcified plaque of the thoracic aortic arch. Cardiac silhouette is enlarged, unchanged. Persistent left greater than right bibasilar consolidation with mildly improved aeration of the lung bases. Mild interstitial coarsening. Lucency projecting over the upper abdomen redemonstrated. Degenerative changes of the shoulders and spine. IMPRESSION: 1. Status post placement of a left subclavian central venous catheter, distal tip terminating in the expected location of the mid SVC. No postprocedural pneumothorax. 2. Endotracheal tube terminates 4.4 cm superior to the wade. 3. Left greater than right bibasilar consolidation, mildly improved from comparison. 4. Persistent lucency of the upper abdomen, pneumoperitoneum versus artifact are considerations. ACT 112: Negative or not required by law. The above report was generated using voice recognition software. It may contain grammatical, syntax or spelling errors. Electronically signed by: Dimas Jarvis M.D. 10/04/2019 1:[address] chest wo con CLINICAL HISTORY: 84 years-old Male with hypoxia, sob, sepsis. Acute hypoxia with shortness of breath TECHNIQUE: Multiaxial CT images of the chest were performed without contrast. A dose lowering technique was utilized adhering to the principles of ALARA. COMPARISON: CT abdomen and pelvis of same day, chest radiograph of same day FINDINGS: Endotracheal tube terminates 2.6 cm superior to the wade. 2.1 cm cystic lesion of the posterior right thyroid. Left subclavian central venous catheter distal tip terminates within the proximal SVC. The heart is mildly enlarged. Coronary arterial and aortic annular calcifications are noted. Trace pericardial effusion. Severe calcified plaque of the thoracic aorta. No aneurysm. Enlarged subcarinal lymph nodes measure up to 1.6 cm in short axis. Enlarged paratracheal lymph nodes measure up to 10 mm. Prominent AP window lymph nodes are also present. Trace right and small left pleural effusions. Left greater the right bibasilar consolidation with multifocal centrilobular and tree-in-bud micronodules. There is mild intralobular septal thickening throughout the right lung. Moderate bronchial wall thickening with bibasilar mucous plugging. Nonspecific stranding of the left retroperitoneum, partially imaged. Soft tissues are unremarkable. Degenerative changes of the shoulders and spine. No acute fracture or suspicious bone lesion. IMPRESSION: 1. Left greater than right bibasilar consolidation suggests pneumonia or aspiration pneumonitis. Additional multifocal centrilobular and tree-in-bud micronodules suggest additional areas of pneumonitis/bronchiolitis. 2. Intralobular septal thickening throughout the right lung suggests mild asymmetric interstitial pulmonary edema. 3. Trace right and small left pleural effusions. 4. Mild mediastinal adenopathy, likely reactive. 5. Endotracheal tube terminates 2.6 cm superior to the wade. 6. Bronchial wall thickening with bibasilar mucous plugging. ACT 112: Negative or not required by law. Electronically signed by: Dimas Jarvis M.D. 10/04/2019 2:[address] abd pelvis wo con CT DOSE: 1054.48 mGy.cm HISTORY: Dyspnea. Pain. sepsis TECHNIQUE: Multiaxial CT images of the abdomen and pelvis were performed without contrast. A dose lowering technique was utilized adhering to the principles of ALARA. COMPARISON STUDY: None. FINDINGS: Very small bilateral pleural effusions with bibasilar atelectatic change. A basilar inflammatory process is not excluded. Overall configuration of liver spleen and pancreas are unremarkable. Kidneys are within limitations of an unenhanced scan. Kidneys show no evidence for hydronephrosis. The bowel pattern overall is nonobstructive. There is a small amount of free fluid within the pelvic cul-de-sac. There is a Mendes catheter within the bladder. Slight increase in density of the omental and/or mesenteric fat as well as subcutaneous fat of the lateral rios of the abdomen and pelvis. This may be secondary to a prior treatment response. IMPRESSION: 1. Mild generalized nonobstructive ileus. 2. basilar parenchymal infiltrative change bilaterally versus atelectasis. 3. Trace amount of free fluid within the pelvic cul-de-sac presumably reactive. ACT 112: Negative or not required by law. The above report was generated using voice recognition software. It may contain grammatical, syntax or spelling errors. Electronically signed by: Cory Ward M.D. 10/04/2019 2:26 PM ECG Data Attestation: I personally reviewed and interpreted this ECG as follows: Indication: + SOB/dyspnea Rate (beats per minute): 132 Rhythm: + sinus tachycardia ECG ST segments: no ST elevation ECG Findings: no PVCs Blood Pressure Blood Pressure Findings: Low blood pressure Blood Pressure Disposition: further management by hospitalist JOMAR Narrative This is an 84-year-old male who presents to the ED with a chief complaint of bret rtness of breath and respiratory failure as well as weakness. The patient was sent from [facility]. The patient arrived via ambulance. The patient was in significant respiratory depression upon his arrival here. The patient was intubated shortly after his arrival using 20 mg of IV etomidate. A sepsis protocol was used and the patient was treated with 30 cc/kg of IV fluids as well as started on broad-spectrum antibiotics. No additional history was available from the patient as the patient was for the most part unresponsive upon his arrival and only responded to some painful stimuli. His respiratory rate was diminished and his air movement was poor. A chest x-ray as well as a CT scan of the chest suggest bilateral pneumonias. White blood cell count is 13. BUN is 23. Troponin was negative. EKG showed a sinus tach at a rate of 132. The patient did have a hypotensive episode prior to the completion of the 30 cc/kg normal saline bolus. After the bolus fluid was administered, the blood pressure did come up and maintain for short while and then his blood pressure dropped again into the 60 systolic range. The patient was started on norepinephrine for this. The patient was given a 1 hour DuoNeb treatment. He was also given IV cefepime and IV vancomycin. He was given some IV lorazepam and fentanyl for sedation. The flu swab came back positive for influenza A. An NG/OG tube was ordered and Tamiflu was ordered to go through the tube. The patient was intubated endotracheally during the initial phases of the resuscitation. He was ventilated. Initial ABG showed a significant respiratory acidosis. There was improvement of the respiratory acidosis on repeat ABG although this did persist. I did speak with Dr. Aparicio who recommended 2 A of IV sodium bicarb. This was ordered. During the patient's early resuscitation a left subclavian central line was also placed as per the procedures above. Impression & Plan Bilateral pneumonia, Hypoxia, Respiratory failure, Septic shock, Respiratory acidosis, Influenza A Discharge Plan Visit Data Chief Complaint: Respiratory Distress ED Provider: Merritt Lay Discharge Problem: Bilateral pneumonia, Hypoxia, Respiratory failure, Septic shock, Respiratory acidosis, Influenza A Patient Disposition: Being Evaluated by Hospitalist Forms Stand Alone Forms: My [facility] Prescriptions Prescriptions: No Action docusate sodium 100 mg tablet 100 mg PO BID RF: 0 ferrous sulfate 325 mg (65 mg iron) tablet 325 mg PO QDB RF: 0 atorvastatin [Lipitor] 10 mg tablet 10 mg PO QDD RF: 0 finasteride [Proscar] 5 mg tablet 5 mg PO DAILY Qty: 30 RF: 0 tamsulosin [Flomax] 0.4 mg capsule 0.4 mg PO QDD Qty: 30 RF: 0 prednisone 10 mg Tablet 10 mg PO TID RF: 0 ipratropium-albuterol 0.5 mg-3 mg(2.5 mg base)/3 mL Solution For Nebulization 3 ml INHALATION QID RF: 0 polyethylene glycol 3350 [Miralax] 17 gram Powder In Packet 17 g PO QDL PRN (Reason: Constipation) RF: 0 metoprolol succinate [Toprol XL] 50 mg Tablet Extended Release 24 Hr 50 mg PO DAILY RF: 0 dextromethorphan-guaifenesin 10-100 mg/5 mL Liquid 5 ml PO Q6H RF: 0 sennosides-docusate sodium [Senna with Docusate Sodium] 8.6-50 mg Tablet 1 tab-cap PO QDL PRN (Reason: Constipation) RF: 0 cyanocobalamin (vitamin B-12) 1,000 mcg Tablet 1,000 mcg PO DAILY RF: 0 bisacodyl [Dulcolax (bisacodyl)] 10 mg Suppository 10 mg ND DAILY PRN (Reason: Constipation) RF: 0 pantoprazole [Protonix] 40 mg Tablet,Delayed Release (Dr/Ec) 40 mg PO DAILYBB RF: 0 levothyroxine [Synthroid] 150 mcg Tablet 150 mcg PO DAILY RF: 0 Enema 19-7 gram/118 mL Enema 133 ml ND DAILY PRN (Reason: Constipation) RF: 0 levofloxacin 500 mg Tablet 500 mg PO DAILY RF: 0 heparin (porcine) 5,000 unit/mL Solution 5,000 unit SUBCUT Q12H RF: 0 cholecalciferol (vitamin D3) [Vitamin D3] 25 mcg (1,000 unit) Capsule 3,000 unit PO DAILY RF: 0 acetaminophen [Tylenol] 325 mg Capsule 650 mg PO Q4H PRN (Reason: Fever Or Pain) RF: 0 Referrals Referrals: Panfilo Unger MD [Primary Care Provider] - Discharge Problem: Bilateral pneumonia Qualifiers: Pneumonia type: due to unspecified organism Lung location: unspecified part of lung Qualified Code(s): J18.9 - Pneumonia, unspecified organism Respiratory failure Qualifiers: Chronicity: unspecified Respiratory failure complication: unspecified whether with hypoxia or hypercapnia Qualified Code(s): J96.90 - Respiratory failure, u nspecified, unspecified whether with hypoxia or hypercapnia The scribe's documentation has been prepared under my direction and personally reviewed by me in its entirety. I confirm that the note above accurately reflects all work, treatment, procedures, and medical decision making performed by me.
[2019-10-04 14:14] LABS: Cast Urine Automated 0 /lpf (0-5)
[2019-10-04 14:23] LABS: Influenza B virus by PCR Neg for Influ B (Neg)
--- NOTE | 2019-10-04 14:27 | CT Scan Report ---
CT chest wo con CLINICAL HISTORY: 84 years-old Male with hypoxia, sob, sepsis. Acute hypoxia with shortness of breat h TECHNIQUE: Multiaxial CT images of the chest were performed without contrast. A dose lowering techni que was utilized adhering to the principles of ALARA. COMPARISON: CT abdomen and pelvis of same day, chest radiograph of same day FINDINGS: Endotracheal tube terminates 2.6 cm superior to the wade. 2.1 cm cystic lesion of the posterior rig ht thyroid. Left subclavian central venous catheter distal tip terminates within the proximal SVC. Th e heart is mildly enlarged. Coronary arterial and aortic annular calcifications are noted. Trace noelle cardial effusion. Severe calcified plaque of the thoracic aorta. No aneurysm. Enlarged subcarinal lym ph nodes measure up to 1.6 cm in short axis. Enlarged paratracheal lymph nodes measure up to 10 mm. P rominent AP window lymph nodes are also present. Trace right and small left pleural effusions. Left greater the right bibasilar consolidation with mul tifocal centrilobular and tree-in-bud micronodules. There is mild intralobular septal thickening thro ughout the right lung. Moderate bronchial wall thickening with bibasilar mucous plugging. Nonspecific stranding of the left retroperitoneum, partially imaged. Soft tissues are unremarkable. D egenerative changes of the shoulders and spine. No acute fracture or suspicious bone lesion. IMPRESSION: 1. Left greater than right bibasilar consolidation suggests pneumonia or aspiration pneumonitis. Edy tional multifocal centrilobular and tree-in-bud micronodules suggest additional areas of pneumonitis/ bronchiolitis. 2. Intralobular septal thickening throughout the right lung suggests mild asymmetric interstitial pul monary edema. 3. Trace right and small left pleural effusions. 4. Mild mediastinal adenopathy, likely reactive. 5. Endotracheal tube terminates 2.6 cm superior to the wade. 6. Bronchial wall thickening with bibasilar mucous plugging. ACT 112: Negative or not required by law. Electronically signed by: Dimas Jarvis M.D. 10/04/2019 2:26 PM
--- NOTE | 2019-10-04 14:28 | CT Scan Report ---
CT abd pelvis wo con CT DOSE: 1054.48 mGy.cm HISTORY: Dyspnea. Pain. sepsis TECHNIQUE: Multiaxial CT images of the abdomen and pelvis were performed without contrast. A dose lo wering technique was utilized adhering to the principles of ALARA. COMPARISON STUDY: None. FINDINGS: Very small bilateral pleural effusions with bibasilar atelectatic change. A basilar inflamm atory process is not excluded. Overall configuration of liver spleen and pancreas are unremarkable. Kidneys are within limitations o f an unenhanced scan. Kidneys show no evidence for hydronephrosis. The bowel pattern overall is nonobstructive. There is a small amount of free fluid within the pelvic cul-de-sac. There is a Mendes catheter within the bladder. Slight increase in density of the omental and/or mesenteric fat as well as subcutaneous fat of the la teral riso of the abdomen and pelvis. This may be secondary to a prior treatment response. IMPRESSION: 1. Mild generalized nonobstructive ileus. 2. basilar parenchymal infiltrative change bilaterally versus atelectasis. 3. Trace amount of free fluid within the pelvic cul-de-sac presumably reactive. ACT 112: Negative or not required by law. The above report was generated using voice recognition software. It may contain grammatical, syntax or spelling errors. Electronically signed by: Cory Ward M.D. 10/04/2019 2:26 PM
[2019-10-04] MEDS ORDERED: STAT IV Infusion **Titration per Protocol STA (14:29)
[2019-10-04] MEDS ORDERED: NOREPINEPHRINE BIT INJ 8 MG in DEXTROSE 5% 500 ML IV SCH (14:30)
[2019-10-04] MEDS ORDERED: NOREPINEPHRINE (Adult STAT Only) 4 MG in D5W 250 ML IV STA (14:31)
[2019-10-04] MEDS ORDERED: SODIUM BICARB 8.4% INJ 50 MEQ/50 ML SYR IV STA (14:33)
[2019-10-04 14:49] LABS: iSTAT Arterial Blood Gas HCO3 29 meg/L (19-24); iSTAT Arterial Blood Gas pCO2 74 mmHg (35-46); iSTAT Arterial Blood Gas pO2 92 mmHg (80-95); iSTAT Carbon Dioxide 31 mmol/L (24-31); iSTAT Hematocrit 41 % (42-52); iSTAT Hemoglobin 13.9 g/dl (14.0-18.0); iSTAT Potassium 4.3 mmol/L (3.3-5.0); iSTAT Sodium 138 mmol/L (135-144)
[2019-10-04] MEDS ORDERED: OSELTAMIVIR PHOSPHATE 75 MG CAP PO STA (15:00)
[2019-10-04] MEDS ORDERED: OSELTAMIVIR PHOSPHATE SUSP 75 MG/12.5 ML UDP NG STA (15:02)
[2019-10-04] MEDS ORDERED: LORazepam 2 MG/4 ML VIAL IV STA (15:18)
--- NOTE | 2019-10-04 15:26 | History & Physical Report ---
Date of Service October 04, 2019 Assessment & Plan (1) Sepsis with acute hypoxic respiratory failure and septic shock: (2) Influenza A: (3) Bilateral pneumonia: (4) Respiratory acidosis: This an 84-year-old male who has significant PMH of atrial fibrillation, HTN, history of CHF, PVD, HLD, hypothyroidism, history of GI bleed, history of C. difficile, cognitive deficit who presents to ED secondary to being found unresponsive at [facility]. In ED initially SBP in the 150s however dropped significantly to SBP in the 60s requiring initiation of IV vasopressors norepinephrine. He was successfully intubated. Notable lab abnormalities include significant respiratory acidosis with pH 7.2, PCO2 74. Positive for influenza A. Lactic acid was WNL. WBC 13., H&H stable at 15.6 28.4, BUN 23, creatinine 1.29, glucose 126. Imaging revealed left greater than right bibasilar consolidation suggesting pneumonia or aspiration pneumonitis. Additional multifocal central lobar tree-in-bud micronodules suggest additional areas of pneumonitis/bronchiolitis. Mild mediastinal adenopathy, likely reactive. ET tube terminating 2.6 cm superior to the wade. Bronchial wall thickening with bibasilar mucous plugging. He received 2.5 L of IV fluid resuscitation along with broad-spectrum antibiotic initiation IV vancomycin and cefepime. NG tube order placed initiation of oral Tamiflu. Pt admitted to ICU continue broad spectrum IV antibiotics vanco and cefepime Tamiflu 75mg via NG started in ED continue vasopressors maintain map refer to juice mixer consultation for further treatment plan and management (5) Afib: on metoprolol off OAC / to GIB in 2018 (6) Congestive heart failure: hx of chronic diastolic CHF Last echo 2018 EF 57%, LA severely enlarged, calcified AV, no stenosis on metoprolol and losartan as outpt lasix has been D/C on prior discharge at [place] 09/24 monitor daily weights (7) Hypertension: pt hypotensive in setting of septic shock hold losartan, metoprolol (8) Hyperlipidemia: on statin as outpt (9) Hypothyroidism: continue synthroid to IV (10) Benign prostatic hyperplasia with urinary obstruction: on flomax and finasteride as outpt on hold (11) Dementia: hx of delirium (12) DVT prophylaxis: Heparin Disposition: admitted to ICU, case management consulted PCP Dr. Cornel, [facility] Pt was seen and examined in collaboration with Dr. Ferrari, please see addendum History of Present Illness Chief Complaint: Unresponsive at [facility]. Primary Care Provider: Panfilo Unger MD This an 84-year-old male who has significant PMH of atrial fibrillation, HTN, history of CHF, PVD, HLD, hypothyroidism, history of GI bleed, history of C. difficile, cognitive deficit who presents to ED secondary to being found unresponsive at [facility]. History unobtainable from patient as he is currently intubated. History obtained from nursing [facility] and ED provider. Patient was admitted to [facility] after short hospitalization at [facility] from 09/20 to 09/24. Admitted to [facility] on 09/24 secondary to frequent falls and lower extremity weakness, dysphagia and PCM. He had been doing well up until 09/30 when he developed URI-like symptoms. Sputum culture was obtained which returned positive for influenza A on 10/03. On 10/03 he was started on Levaquin 500 mg daily in which she has had 2 doses and prednisone 10 mg 3 times daily which he has had 3 doses. He started to become hypoxic on 10/01 requiring O2 via NC. He was last seen well by nursing at approximately 1045 with a very moist, wet but nonproductive cough. At approximately 12 PM he was found unresponsive by son, nupur with O2 saturations in the 60s. He was transferred to ED on BiPAP. Due to persistent hypoxia he required urgent mechanical ventilation and intubation. In ED initially SBP in the 150s however dropped significantly to SBP in the 60s requiring initiation of IV vasopressors norepinephrine. He was successfully intubated. Notable lab abnormalities include significant respiratory acidosis with pH 7.2, PCO2 74. Positive for influenza A. Lactic acid was WNL. WBC 13., H&H stable at 15.6 28.4, BUN 23, creatinine 1.29, glucose 126. Imaging revealed left greater than right bibasilar consolidation suggesting pneumonia or aspiration pneumonitis. Additional multifocal central lobar tree-in-bud micronodules suggest additional areas of pneumonitis/bronchiolitis. Mild mediastinal adenopathy, likely reactive. ET tube terminating 2.6 cm superior to the wade. Bronchial wall thickening with bibasilar mucous plugging. He received 2.5 L of IV fluid resuscitation along with broad-spectrum antibiotic initiation IV vancomycin and cefepime. NG tube order placed initiation of oral Tamiflu. Allergies Allergy/AdvReac Type Severity Reaction Status Date / Time No Known Drug Allergies Allergy Verified 10/04/19 13:39 Home Medications Home Medications Medication Instructions Recorded Confirmed Type atorvastatin 10 mg tablet 10 mg PO QDD tab 12/20/18 10/04/19 History docusate sodium 100 mg tablet 100 mg PO BID tab 12/20/18 10/04/19 History ferrous sulfate 325 mg (65 mg 325 mg PO QDB tab 12/20/18 10/04/19 History iron) tablet finasteride 5 mg tablet 5 mg PO DAILY #30 tab 12/20/18 10/04/19 History tamsulosin 0.4 mg capsule 0.4 mg PO QDD #30 cap 12/20/18 10/04/19 History acetaminophen [Tylenol] 650 mg PO Q4H PRN 10/04/19 10/04/19 History bisacodyl [Dulcolax (bisacodyl)] 10 mg KS DAILY PRN 10/04/19 10/04/19 History cholecalciferol (vitamin D3) 3,000 unit PO DAILY 10/04/19 10/04/19 History [Vitamin D3] cyanocobalamin (vitamin B-12) 1,000 mcg PO DAILY 10/04/19 10/04/19 History dextromethorphan-guaifenesin 5 ml PO Q6H 10/04/19 10/04/19 History heparin (porcine) 5,000 unit SUBCUT Q12H 10/04/19 10/04/19 History ipratropium-albuterol 3 ml INHALATION QID 10/04/19 10/04/19 History levofloxacin 500 mg PO DAILY 10/04/19 10/04/19 History levothyroxine [Synthroid] 150 mcg PO DAILY 10/04/19 10/04/19 History losartan 25 mg PO DAILY 10/04/19 10/04/19 History metoprolol succinate [Toprol XL] 50 mg PO DAILY 10/04/19 10/04/19 History pantoprazole [Protonix] 40 mg PO DAILYBB 10/04/19 10/04/19 History polyethylene glycol 3350 [Miralax] 17 g PO QDL PRN 10/04/19 10/04/19 History prednisone 10 mg PO TID 10/04/19 10/04/19 History sennosides-docusate sodium [Senna 1 tab-cap PO QDL PRN 10/04/19 10/04/19 History with Docusate Sodium] sodium phosphates [Enema] 133 ml KS DAILY PRN 10/04/19 10/04/19 History Past Med/Surg History Medical History (Updated 10/04/19 @ 16:13 by Anastasiia Ellison MD) Anemia (Acute) Atrial fib/flutter, transient Congestive heart failure (Acute) Dementia DVT prophylaxis History of CVA (cerebrovascular accident) History of GI bleed 01/16/2018 oozing gastric ulcer, clips placed repeat EGD 03/2018 healed gastric ulcer History of renal calculi Hx of Clostridium difficile infection Hyperlipidemia (Acute) Hypertension (Acute) Hypothyroidism (Acute) Protein calorie malnutrition PVD (peripheral vascular disease) Surgical History (Updated 10/04/19 @ 15:35 by Amanda Taveras PA-C) History of cataract extraction History of elbow surgery History of lithotripsy History of tonsillectomy and adenoidectomy History of total hip arthroplasty R ZA 11/29/2017 Family History Father COPD (chronic obstructive pulmonary disease) Mother Diabetes Uterine cancer Social History Preferred Language: Lebanese Communication Ability: Effective Communication Ability Comment: Intubated Beliefs That Will Affect Care: None marital status: / marital status details: passed ~ 2 weeks ago Current Living Situation: Rehab Current Living Situation Comment: [facility] Feels Safe at Home: Yes Smoking Status: Unknown if ever smoked Review of Systems Review of Systems: Unobtainable due to endotracheal tube Physical Exam Physical Exam: Constitutional: Elderly male, intubated and sedated, restless legs, ET tube in place, NAD Head: Normocephalic, Atraumatic Eyes: Pupils pinpoint but reactive to light, conjunctivae normal, anicteric sclerae ENMT: external ear and nose normal, oropharynx normal,+ ET tube in place Neck: trachea midline, no thyromegaly normal visual inspection Respiratory: + ET Tube, decreased BS at bases, +Bibasilar crackles noted, no wheeze or rhonchi. Normal insp/exp effort, no accessory muscle use Cardiovascular: tachycardic rate, S1, S2, no murmur, no edema , b/l cool lower peripheral extremities, dusky venous stasis, good b/l pedal and radial pulse +2 noted Vessels: no JVD or carotid bruit Chest: normal inspection of chest, LACW central cath placed Abdomen: normal bowel sounds, soft, nontender, no hepatosplenomegaly Musculoskeletal: no cyanosis or clubbing noted. unable to assess MSK given sedated stated Skin: no rashes, warm and dry normal turgor Neurologic: unable to assess Psychiatric: sedated, unable to assess Lymphatic: no cervical or axillary lymphadenopathy : +parikh draining octavio urine Results & Data Vital Signs (Past 12 Hours) Vital Signs Temp Pulse Pulse Resp BP BP Pulse Ox 10/04/19 14:50 113 H 102/70 98 10/04/19 14:46 94 H 20 94 10/04/19 14:45 111 H 109/62 98 10/04/19 14:40 106 H 94/80 L 98 10/04/19 14:35 111 H 84/62 L 97 10/04/19 14:30 121 H 85/53 L 96 10/04/19 14:25 106 H 21 77/53 L 95 10/04/19 14:21 113 H 20 66/47 L 92 10/04/19 14:15 112 H 21 81/65 L 91 10/04/19 13:55 107/72 98 10/04/19 13:50 117 H 106/61 96 10/04/19 13:45 111 H 98/66 L 98 10/04/19 13:40 120 H 115/78 96 10/04/19 13:38 125 H 22 97 10/04/19 13:35 124 H 109/76 97 10/04/19 13:30 115 H 105/71 96 10/04/19 13:26 22 94 10/04/19 13:25 124 H 110/52 L 95 10/04/19 13:19 20 10/04/19 13:15 123 H 69/54 L 86 L 10/04/19 13:10 128 H 77/59 L 85 L 10/04/19 13:05 123 H 86/56 L 87 L 10/04/19 13:00 123 H 96/81 L 86 L 10/04/19 12:56 117 H 94/60 L 87 L 10/04/19 12:52 120 H 15 90 10/04/19 12:49 132 H 150/87 H 84 L 10/04/19 12:46 132 H 32 H 78 L 10/04/19 12:42 37.9 C H 121 H 42 H 150/87 H 82 L Laboratory Results Short CBC 10/04/19 Range/Units 12:55 WBC 13.05 H (4.8-10.8) K/uL Hgb 15.6 (14.0-18.0) g/dL Hct 48.4 (42-52) % Plt Count 233 (130-400) K/uL BMP 10/04/19 12:55 Sodium 136 Potassium 4.5 Chloride 100 Carbon Dioxide 33 H BUN 23 H Creatinine 1.29 Glucose 126 H Calcium 9.4 Cardiac Enzymes 10/04/19 Range/Units 12:55 Troponin I < 0.015 (0-0.045) ng/ml Liver Function 10/04/19 Range/Units 12:55 Total Bilirubin 0.7 (0.2-1) mg/dl AST 23 (15-37) U/L ALT 22 (12-78) U/L Alkaline Phosphatase 88 (45-117) U/L Albumin 3.0 L (3.4-5.0) gm/dl Urine 10/04/19 Range/Units 13:30 Urine Color Dark Yellow Urine Appearance Cloudy A (Clear) Urine pH 5.0 (4.5-7.5) Ur Specific Sebastian 1.024 (1.000-1.030) Urine Protein 1+ H (Negative) Urine Glucose (UA) Negative (Negative) Diagnostic Findings CXR: IMPRESSION: 1. Tip of endotracheal tube 3.7 cm above the wade. 2. Left basilar consolidation which suggests pneumonia/aspiration. Small left pleural effusion. No pneumothorax. 3. Lucency projecting over the upper abdomen. This is probably artifactual however pneumoperitoneum cannot be excluded. Findings discussed with Dr. Lay at time of dictation. CT abd/pelvis: IMPRESSION: 1. Mild generalized nonobstructive ileus. 2. basilar parenchymal infiltrative change bilaterally versus atelectasis. 3. Trace amount of free fluid within the pelvic cul-de-sac presumably reactive. Chest CT: IMPRESSION: 1. Left greater than right bibasilar consolidation suggests pneumonia or aspiration pneumonitis. Additional multifocal centrilobular and tree-in-bud micronodules suggest additional areas of pneumonitis/bronchiolitis. 2. Intralobular septal thickening throughout the right lung suggests mild asymmetric interstitial pulmonary edema. 3. Trace right and small left pleural effusions. 4. Mild mediastinal adenopathy, likely reactive. 5. Endotracheal tube terminates 2.6 cm superior to the wade. 6. Bronchial wall thickening with bibasilar mucous plugging. CXR: IMPRESSION: 1. Status post placement of a left subclavian central venous catheter, distal tip terminating in the expected location of the mid SVC. No postprocedural pneumothorax. 2. Endotracheal tube terminates 4.4 cm superior to the wade. 3. Left greater than right bibasilar consolidation, mildly improved from comparison. 4. Persistent lucency of the upper abdomen, pneumoperitoneum versus artifact are considerations. Medications Administered Norepinephrine Bitartrate 4 mg (/ Dextrose) 254 mls @ 15.24 mls/hr IV .[id number] STA; Protocol Stop: 10/05/19 07:10 Last Admin: 10/04/19 14:30 Dose: 0.05 mcg/kg/min, 15.2 mls/hr Documented by: [id number] Cosigned by: [id number] Midazolam HCl (Versed) 2 mg IV Q2M PRN PRN Reason: sedation Stop: 11/03/19 15:37 Last Admin: 10/04/19 15:41 Dose: 2 mg Documented by: [id number] Admin: 10/04/19 15:39 Dose: 2 mg Documented by: [id number] Discontinued Medications Albuterol (Duoneb) 12 ml NEB ONE ONE Stop: 10/04/19 13:21 Last Admin: 10/04/19 13:23 Dose: 12 ml Documented by: [id number] Etomidate (Amidate) 20 mg IV ONE ONE Stop: 10/04/19 12:46 Last Admin: 10/04/19 12:48 Dose: 20 mg Documented by: [id number] Fentanyl Citrate (Fentanyl Citrate) 50 mcg IV NOW STA Stop: 10/04/19 13:50 Last Admin: 10/04/19 13:56 Dose: 50 mcg Documented by: [id number] Fentanyl Citrate (Fentanyl Citrate) Confirm Administered Dose 100 mcg .ROUTE .STK-MED ONE Stop: 10/04/19 13:52 Last Admin: 10/04/19 14:16 Dose: Not Given Documented by: [id number] Lactated Ringer's (Lr) 1,000 mls @ 999 mls/hr IV .Q1H1M ONE Stop: 10/04/19 13:52 Last Infusion: 10/04/19 14:19 Dose: 0 mls/hr Documented by: [id number] Admin: 10/04/19 13:10 Dose: 999 mls/hr Documented by: [id number] Cefepime HCl (Maxipime) 2,000 mg in 20 mls @ 5 mls/min IV NOW STA; Protocol Stop: 10/04/19 12:55 Last Admin: 10/04/19 13:25 Dose: 5 mls/min Documented by: [id number] Vancomycin HCl 1,750 mg/ (Sodium Chloride) 535 mls @ 200 mls/hr IV NOW STA Stop: 10/04/19 15:41 Last Admin: 10/04/19 13:30 Dose: 200 mls/hr Documented by: [id number] Lorazepam (Ativan) 2 mg in 4 mls @ 2 mls/min IV ONE ONE Stop: 10/04/19 12:51 Last Admin: 10/04/19 12:52 Dose: 2 mls/min Documented by: [id number] Sodium Chloride (Nss 1000ml) 500 mls @ 999 mls/hr IV .Q31M ONE Stop: 10/04/19 13:39 Last Infusion: 10/04/19 14:56 Dose: 0 mls/hr Documented by: [id number] Admin: 10/04/19 14:19 Dose: 999 mls/hr Documented by: [id number] Sodium Chloride (Nss 1000ml) 1,000 mls @ 999 mls/hr IV .Q1H1M ONE Stop: 10/04/19 14:09 Last Infusion: 10/04/19 14:19 Dose: 0 mls/hr Documented by: [id number] Admin: 10/04/19 12:55 Dose: 999 mls/hr Documented by: [id number] Lorazepam (Ativan) 1 mg in 2 mls @ 2 mls/min IV NOW STA Stop: 10/04/19 13:50 Last Admin: 10/04/19 13:56 Dose: 2 mls/min Documented by: [id number] Lorazepam (Ativan) 1 mg in 2 mls @ 2 mls/min IV NOW STA Stop: 10/04/19 15:10 Last Admin: 10/04/19 15:10 Dose: 2 mls/min Documented by: [id number] Lorazepam (Ativan) 2 mg in 4 mls @ 4 mls/min IV NOW STA Stop: 10/04/19 15:19 Last Admin: 10/04/19 15:22 Dose: 4 mls/min Documented by: [id number] Sodium Bicarbonate (Sodium Bicarbonate 8.4%) 100 meq IV NOW STA Stop: 10/04/19 14:34 Last Admin: 10/04/19 15:06 Dose: 100 meq Documented by: [id number] ECG Rate (beats per minute): 132 Rhythm: sinus tachycardia Findings: + nonspecific-ST abn Code Status & VTE Plan Code Status Full Code VTE Prophylaxis Plan VTE Prophylaxis will be ordered: Yes Supervising Physician Co-Signing Physician Notes Care coordinated with Amanda Taveras PA-C. Agree with above note. Patient seen and examined. Please refer to her notes for full details. Vital signs reviewed. Physical exam: General exam: s/p intubation CVS: S1 and S2 heard, regular rate and rhythm, no murmurs. RS: Clear to auscultation, no wheezing or crackles. ABD: Soft, bowel sounds present, no distention. DESK INTERVIEWER: s/p intubated EXT: No edema, no erythema. Labs: Reviewed. Assessment and plan: S/P intubated in Er. Imaging studies showing bibasilar infiltrates and influenza A positive. Acute Resp failure Sepsis requiring pressors bibasilar pneumonia Hypoxia Flu A positive s/p intubation iv cefepime and iv vanco iv fluids vent management as per critical care close monitor in ICU.84M with multiple medical problems as mentioned above was found unresponsive at [facility]. He was recently at [facility] and was discharged to rehab. Apparently last few days having respiratory symptoms. Was hypoxic and was brought on bipap. HTN hold home meds as patient is currently hypotensive hx of d chf monitor for volume overload not on diuretics toprol xl and losartan on hold.s Other diagnosis and plan of care as per Amanda Taveras PA-C. Timur leblanc MD. (1) Bilateral pneumonia Lung location: unspecified part of lung Pneumonia type: due to unspecified organism Qualified Code(s): J18.9 - Pneumonia, unspecified organism
[2019-10-04] MEDS ORDERED: MIDAZOLAM HCL 5 MG/ML 1 ML VIAL IV STA ×2 (15:32)
[2019-10-04] MEDS ORDERED: MIDAZOLAM HCL 1 MG/ML 2ML VIAL ONE (15:35)
[2019-10-04] MEDS: MIDAZOLAM HCL 1 MG/ML 2ML VIAL IV PRN ×2 (15:39→15:41)
--- NOTE | 2019-10-04 15:41 | Critical Care Consultation ---
Date of Consultation October 04, 2019 Assessment & Plan (1) Admitted to intensive care unit: Reason Critically Ill: 84 yo male admitted from acute rehab facility for impending respiratory failure, emergently intubated in the ED, thought to be secondary to sepsis from a pulmonary source. He was transferred to the ICU for mechanical ventilation and hypotension requiring vasoactive medication management. A long discussion was held with son (WAQAS) and grandson upon arrival to ICU. Patient does have living will in place. In the setting of acute illness, WAQAS states that patient will be DNR in the setting of a cardiac arrest, he would not want dialysis, nor would he want a tracheostomy. WAQAS did provide written consent to a bronchoscopy and arterial line placement. Neuro: [facility] ICU: negative. * Hx Dementia- baseline uncertain. -currently not sedated Cardiac: * hypotension - BP 99/61, MAP 74. Currently on norepinephrine drip. likely secondary to septic state * Hx A-fib - paroxysmal. Patient previously on Coumadin but this was d/c after a GI bleed. sinus rhythm on arrival. rate 90-100s. 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 Iv metoprolol 5mg prn for rate control. * Hx CHF - chest CT obtained on admission showed trace bilateral pleural effusions, no gross volume overload. continue to monitor in the setting of volume replacement. Respiratory: * Acute hypoxemic respiratory failure - currently on mechanical ventilation. Assist control, 20/500/10/100%. significant respiratory acidosis with pH 7.2, PCO2 74 on admission. Will repeat blood gas. will perform bedside bronchoscopy. * Influenza A with suspected superimposed bacterial PNA - admission chest CT showing bibasilar consolidation, left greater than right. Patient febrile. WBC elevated to 13 on admission. - certainly has risk factors for HCAP (30 day hospital readmission and rehab stay). - continue IV vancomycin and cefepime. - continue Tamiflu (day 1 of 5) GI: * OG tube placed * NPO RENAL/LYTES: * cr 1.29 on admission. volume resuscitation in ED. etiology like secondary to hypoperfusion due to septic state. continue to trend. * electrolytes WNL : * UA equivocal. Culture pending. ENDO: * no underlying history of diabetes. ICU protocol for hyperglycemia. * Hx hypothyroidism - continue home levothyroxine. HEME: * hgb 15.6. no issues identified. ID: * Sepsis secondary to suspected pulmonary source. SIRS criteria met on admission. Lactic acid was WNL. WBC mildly elevated to 13. Blood cultures pending. Urine culture pending. - volume resuscitation in ED - antibiotics as above - Tamiflu as above - vasopressors as above - nasal MRSA swab pending LINES/IV ACCESS: * arterial line * PIV x 2 * Left subclavian triple lumen CVC CODE STATUS: Full Code DVT PROPHYLAXIS: Heparin 5,000 units SQ q8 Thank you for allowing us to participate in the care of this patient. Please refer to my attending physician's documentation for any further recommendations. Supervising Physician Co-Signing Physician Notes Dr. Ellison was resident physician during care of patient. I separately evaluated patient for bravo portions of the history and the exam. I was present during the critical portion of medical decision making, and I discussed the case with the resident. I generally agree with the findings and plan. History was obtained from the patient's son; patient was recently admitted for 2 days at [facility] with the diagnosis of urinary tract infection. The patient was complaining of persistent weakness and he was transferred to [facility] for rehabilitation. Patient normally lives alone and is able to complete his activities of daily living. He has suffered a functional decline most recently in the last 2 to 3 weeks he is also recently lost his which he lived with. In discussion with the patient's son he would not want to undergo hemodialysis in any fashion, he would not want heroic measures undertaken in event of cardiac arrest. He would be comfortable with intubation and mechanical ventilation, accordingly we will continue current treatment to hopefully resolve this pneumonia. It is understood that the patient likely will not return to a high functional status at baseline that would allow for independent living, his son has found facilities that work in between a independent living facility and a longterm facility. The patient son reports that the patient has called longterm facilities " [facility]". Patient critically ill due to right lower lobe pneumonia and influenza A I have personally spent 90 minutes of critical care time in the direct management of this patient. This is a life/limb threatening event. This includes time spent evaluating patient, direct bedside care, chart review, placing orders, interpretation of diagnostic studies, discussion with consultants, patient, and/or family members regarding treatment decisions, as well as other required patient management activities. This time is exclusive of all separately billable procedures, and teaching time and separate from and in addition to any other critical care service time. History of Present Illness Reason for Consultation: 84 yo M brought to the ED from [facility] after being found unresponsive today with oxygen saturations in the 60s. Per admitting hospitalist, he developed URI symptoms along with an oxygen requirement of 2L three days [employer] while at [facility] A sputum culture returned as positive for Influenza A on 10/03. Of note, he was started on Levaquin 500mg BID and prednisone 10mg TID at [facility] but not Tamiflu. 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 Due to impending respiratory failure he was emergently intubated in the ED. A Left subclavian CVC was also placed. Blood gas showed significant respiratory acidosis with pH 7.2, PCO2 74. Positive for influenza A. Lactic acid was WNL. WBC mildly elevated to 13. Cr at 1.29. Chest CT showing bibasilar consolidation, left greater than right. He received 2.5 L of IV fluid resuscitation along with broad-spectrum antibiotic initiation IV vancomycin and cefepime. NG tube was placed and oral Tamiflu was initiated. He was bought to the ICU for mechanical ventilation and hypotension requiring vasoactive medication management. Allergies Allergy/AdvReac Type Severity Reaction Status Date / Time No Known Drug Allergies Allergy Verified 10/04/19 13:39 Home Medications Home Medications Medication Instructions Recorded Confirmed Type atorvastatin 10 mg tablet 10 mg PO QDD tab 12/20/18 10/04/19 History docusate sodium 100 mg tablet 100 mg PO BID tab 12/20/18 10/04/19 History ferrous sulfate 325 mg (65 mg 325 mg PO QDB tab 12/20/18 10/04/19 History iron) tablet finasteride 5 mg tablet 5 mg PO DAILY #30 tab 12/20/18 10/04/19 History tamsulosin 0.4 mg capsule 0.4 mg PO QDD #30 cap 12/20/18 10/04/19 History acetaminophen [Tylenol] 650 mg PO Q4H PRN 10/04/19 10/04/19 History bisacodyl [Dulcolax (bisacodyl)] 10 mg TX DAILY PRN 10/04/19 10/04/19 History cholecalciferol (vitamin D3) 3,000 unit PO DAILY 10/04/19 10/04/19 History [Vitamin D3] cyanocobalamin (vitamin B-12) 1,000 mcg PO DAILY 10/04/19 10/04/19 History dextromethorphan-guaifenesin 5 ml PO Q6H 10/04/19 10/04/19 History heparin (porcine) 5,000 unit SUBCUT Q12H 10/04/19 10/04/19 History ipratropium-albuterol 3 ml INHALATION QID 10/04/19 10/04/19 History levofloxacin 500 mg PO DAILY 10/04/19 10/04/19 History levothyroxine [Synthroid] 150 mcg PO DAILY 10/04/19 10/04/19 History losartan 25 mg PO DAILY 10/04/19 10/04/19 History metoprolol succinate [Toprol XL] 50 mg PO DAILY 10/04/19 10/04/19 History pantoprazole [Protonix] 40 mg PO DAILYBB 10/04/19 10/04/19 History polyethylene glycol 3350 [Miralax] 17 g PO QDL PRN 10/04/19 10/04/19 History prednisone 10 mg PO TID 10/04/19 10/04/19 History sennosides-docusate sodium [Senna 1 tab-cap PO QDL PRN 10/04/19 10/04/19 History with Docusate Sodium] sodium phosphates [Enema] 133 ml TX DAILY PRN 10/04/19 10/04/19 History Patient History Medical History (Updated 10/05/19 @ 15:14 by Matthieu Cross DO) Anemia (Acute) Atrial fib/flutter, transient Congestive heart failure (Acute) Dementia DVT prophylaxis History of CVA (cerebrovascular accident) History of GI bleed 01/16/2018 oozing gastric ulcer, clips placed repeat EGD 03/2018 healed gastric ulcer History of renal calculi Hx of Clostridium difficile infection Hyperlipidemia (Acute) Hypertension (Acute) Hypothyroidism (Acute) Protein calorie malnutrition PVD (peripheral vascular disease) Surgical History (Updated 10/04/19 @ 15:35 by Amanda Taveras PA-C) History of cataract extraction History of elbow surgery History of lithotripsy History of tonsillectomy and adenoidectomy History of total hip arthroplasty R ZA 11/29/2017 Family History Father COPD (chronic obstructive pulmonary disease) Mother Diabetes Uterine cancer Social History Preferred Language: Indian Communication Ability: Effective Communication Ability Comment: Intubated Beliefs That Will Affect Care: None marital status: / marital status details: passed ~ 2 weeks ago Current Living Situation: Rehab Current Living Situation Comment: [facility] Feels Safe at Home: Yes Smoking Status: Unknown if ever smoked Review of Systems Review of Systems: Unobtainable due to endotracheal tube Physical Exam Constitutional: WD/WN, vitals as above + mechanically ventilated ENMT: external ear and nose normal, oropharynx normal Neck: normal visual inspection and trachea midline ETT in place Respiratory: normal respiratory effort; no cough Auscultation: + diminished lung sounds (bilateral bases); no wheezes Cardiovascular: RRR, no murmur, no edema Heart Sounds: normal S1 and normal S2 Gastrointestinal (Abdomen): normal bowel sounds, soft, nontender, no hepatosplenomegaly Skin: no rashes, warm and dry Results & Data Vital Signs (Past 12 Hours) Vital Signs Temp Pulse Pulse Resp BP BP Pulse Ox 10/04/19 15:30 110 H 98 10/04/19 15:26 110 H 116/68 99 10/04/19 15:20 103 H 121/76 100 10/04/19 15:17 108 H 115/76 98 10/04/19 15:10 115 H 106/80 100 10/04/19 15:05 112 H 109/71 100 10/04/19 15:00 111 H 112/69 100 10/04/19 14:55 108 H 111/72 100 10/04/19 14:50 113 H 102/70 98 10/04/19 14:46 94 H 20 94 10/04/19 14:45 111 H 109/62 98 10/04/19 14:40 106 H 94/80 L 98 10/04/19 14:35 111 H 84/62 L 97 10/04/19 14:30 121 H 85/53 L 96 10/04/19 14:25 106 H 21 77/53 L 95 10/04/19 14:21 113 H 20 66/47 L 92 10/04/19 14:15 112 H 21 81/65 L 91 10/04/19 13:55 107/72 98 10/04/19 13:50 117 H 106/61 96 10/04/19 13:45 111 H 98/66 L 98 10/04/19 13:40 120 H 115/78 96 10/04/19 13:38 125 H 22 97 10/04/19 13:35 124 H 109/76 97 10/04/19 13:30 115 H 105/71 96 10/04/19 13:26 22 94 10/04/19 13:25 124 H 110/52 L 95 10/04/19 13:19 20 10/04/19 13:15 123 H 69/54 L 86 L 10/04/19 13:10 128 H 77/59 L 85 L 10/04/19 13:05 123 H 86/56 L 87 L 10/04/19 13:00 123 H 96/81 L 86 L 10/04/19 12:56 117 H 94/60 L 87 L 10/04/19 12:52 120 H 15 90 10/04/19 12:49 132 H 150/87 H 84 L 10/04/19 12:46 132 H 32 H 78 L 10/04/19 12:42 37.9 C H 121 H 42 H 150/87 H 82 L Resident Activity Tracking Resident Involvement: Resident Care Provided Care Provided: Adult Hospital Medicine
--- NOTE | 2019-10-04 16:15 | XRay Report ---
KUB HISTORY: ng tube placement COMPARISON: Abdomen and pelvis CT 10/04/2019. FINDINGS: No significant change in the mildly dilated gas-filled loops of large bowel. Nasogastric tu be terminates in the proximal stomach. The fenestrated line lies at the gastroesophageal junction. Th is be advanced by approximately 5 cm. Bibasilar consolidation persists. A 5 mm stone within the right renal pelvis is again noted. No renal calculi. No ureteral calculi. No pneumoperitoneum or pneumato sis. IMPRESSION: 1. No change in the mildly dilated gas-filled loops of large bowel. This could be due to an ileus or obstruction. 2. Nasogastric tube terminates in the proximal stomach. The fenestrated line is located at the gastro esophageal junction. This should be advanced by approximately 5 cm. ACT 112: Negative or not required by law. Electronically signed by: Allan Alvarenga M.D. 10/04/2019 4:13 PM
[2019-10-04] MEDS ORDERED: VANCOMYCIN CONSULT ACTIVE PRN (16:36)
[2019-10-04] MEDS ORDERED: ICU PROTOCOL FOR HYPERGLYCEMIA PRN (16:36)
[2019-10-04] MEDS ORDERED: CEFEPIME CONSULT ACTIVE PRN (16:36)
[2019-10-04] MEDS ORDERED: PATIENT'S HEIGHT AND/OR WEIGHT NEEDED SCH (17:00)
--- NOTE | 2019-10-04 18:05 | Procedure Note ---
Procedure Note: Bronchoscopy Procedure Procedure date: September Procedure: fiberoptic bronchoscopy Pre-procedure indication: Pulmonary infiltrate Post-procedure Diagnosis: same as above Prior to Procedure: Informed Consent: The risks, benefits, indications, potential complications, and alternatives were explained to the patient's son and informed consent obtained. Attending Staff: Christianne Cross DO Resident/APC: Not applicable Skin Prep: Not applicable Anesthesia: Continuous infusion The identity of the patient was confirmed and a bedside time out was performed. Description of Procedure: Fiberoptic bronchoscopy was performed via endotracheal tube. Bronchioalveolar lavage right lower lobe was performed. Findings included: Thick tenacious white mucopurulent secretions largely isolated to the right lower and a little of the right middle lobe, remaining lung dumont appeared healthy. Complications: None Specimens: Bronchial washings sent for culture and Gram stain, cytology, fungal elements, and AFB stain and culture. Estimated blood loss: Zero
--- NOTE | 2019-10-04 18:37 | Electrocardiogram Report ---
Test Reason : Blood Pressure : / mmHG Vent. Rate : 132 BPM Atrial Rate : 132 BPM P-R Int : 134 ms QRS Dur : 096 ms QT Int : 362 ms P-R-T Axes : 000 019 -71 degrees QTc Int : 536 ms Atrial fibrillation Low voltage QRS Nonspecific ST and T wave abnormality Abnormal ECG No previous ECGs available Confirmed by Aaron Salinas ([id number]) on 10/04/2019 6:37:13 PM Referred By: [facility] Confirmed By:Darwin Salinas
[2019-10-04] MEDS ORDERED: LORazepam 2 MG/ML VIAL IV ONE (19:40)
--- NOTE | 2019-10-04 20:25 | Pharmacy Report ---
Pharmacy Abx Dose Short Note - Date of Service October 04, 2019 - Assessment & Plan Assessment 84 year old M receiving IV Vancomycin and Cefepime for treatment of B/L pneumonia Day # 1 of antimicrobial therapy. * Baseline renal function unclear, but most recent sCr = 1.29 mg/dL with estimated CrCl ~47 mL/min. Estimated pharmacokinetic parameters: * Ke ~0.043/hr, T1/2 ~16.1 hrs * Vancomycin 1750mg (~22mg/kg) IV was given as a loading dose in the ED Plan Vancomycin * Initiate Vancomycin 1250mg (~15mg/kg) IV q18 as maintenance regimen * Goal trough level for pneumonia : 15 to 20 mcg/mL * Trough level ordered for: 10/06/19 @ 0130 (this is an early level not reflective of steady state, but want to assess dosing regimen early due to unpredictability of Vancomycin in elderly patients with renal impairment) Cefepime * Target dose = 2g IV q8 given ICU status * Reduce Cefepime to 2g IV q12 for CrCl ~47 mL/min Pharmacy will continue to follow and will adjust dose/frequency as necessary. Thank you.
[2019-10-04] MEDS: HEPARIN SOD 5,000 UNIT/0.5 ML VIAL SQ SCH (21:23)
[2019-10-04] MEDS: OSELTAMIVIR PHOSPHATE SUSP 30 MG/5 ML UDP PO SCH (21:23)
[2019-10-04] MEDS: NORMOSOL-R 1,000 ML IV SCH (21:30)
[2019-10-05] MEDS ORDERED: CEFEPIME 2,000 MG/20 ML VIAL IV SCH (02:00)
[2019-10-05] MEDS: MIDAZOLAM HCL 1 MG/ML 2ML VIAL IV PRN (02:15)
[2019-10-05] MEDS ORDERED: ALBUMIN 5% 250 ML IV ONE (02:30)
[2019-10-05] MEDS ORDERED: STAT IV Infusion **Titration per Protocol STA ×2 (02:59→14:33)
[2019-10-05] MEDS ORDERED: PROPOFOL IV EMULSION 10 MG/ML 100 ML VIAL IV ONE (03:00)
[2019-10-05] MEDS ORDERED: propofoL 1,000 MG/100 ML VIAL IV SCH (03:00)
[2019-10-05 05:15] LABS: iSTAT Allen Test Pass; iSTAT Art Bld Gas pCO2 Correct 47 mmHg (35-46); iSTAT Art Bld Gas pH Corrected 7.402 (7.35-7.45); iSTAT Arterial Blood Gas HCO3 29 meg/L (19-24); iSTAT Arterial Blood Gas pCO2 47 mmHg (35-46); iSTAT Arterial Blood Gas pO2 59 mmHg (80-95); iSTAT Arterial Blood Gas pO2 C 58; iSTAT Carbon Dioxide 31 mmol/L (24-31); iSTAT FiO2 40 %; iSTAT Hematocrit 37 % (42-52); iSTAT Hemoglobin 12.6 g/dl (14.0-18.0); iSTAT Potassium 4.2 mmol/L (3.3-5.0); iSTAT Site L Radial; iSTAT Sodium 139 mmol/L (135-144)
[2019-10-05 05:30] LABS: Eosinophils # (auto) 0.01 K/uL (0-0.5); Eosinophils % (auto) 0.1 %; Hematocrit (blood only) 40.2 % (42-52); Hemoglobin 12.7 g/dL (14.0-18.0); Immature Granulocytes # (auto) 0.04 K/uL (0.00-0.02); Immature Granulocytes % (auto) 0.4 %; Lymphocytes # (auto) 0.32 K/uL (1.2-3.4); Lymphocytes % (auto) 2.8 %; Mean Corpuscular Hemoglobin 30.6 pg (25-34); Mean Corpuscular Hgb Conc 31.6 g/dL (32-36); Mean Corpuscular Volume 96.9 fL (80-100); Mean Platelet Volume 10.7 fL (7.4-10.4); Monocytes # (auto) 0.38 K/uL (0.11-0.59); Monocytes % (auto) 3.4 %; Neutrophils # (auto) 10.54 K/uL (1.4-6.5); Neutrophils % (auto) 93.3 %; Platelet Count 162 K/uL (130-400); RDW Coefficient of Variation 14.5 % (11.5-14.5); RDW Standard Deviation 51.1 fL (36.4-46.3); Red Blood Count 4.15 M/uL (4.7-6.1); White Blood Count 11.29 K/uL (4.8-10.8)
[2019-10-05 05:34] LABS: Albumin Level 2.4 gm/dl (3.4-5.0); BUN Creatinine Ratio 27.2 (10-20); Calcium 8.5 mg/dl (8.5-10.1); Creatinine Clr Calc Pharmacy 65.6 ml/min; Est GFR (African American) 88.2; Est GFR (Non-African American) 76.1; Potassium 4.3 mmol/L (3.5-5.1)
[2019-10-05 05:39] LABS: Albumin Globulin Ratio 0.7 (0.9-2); Bilirubin,Total 0.9 mg/dl (0.2-1); Globulin 3.6 gm/dl (2.5-4.0); Phosphorus 2.1 mg/dl (2.5-4.9)
[2019-10-05] MEDS: HEPARIN SOD 5,000 UNIT/0.5 ML VIAL SQ SCH ×2 (05:47→15:18)
[2019-10-05] MEDS ORDERED: VANCOMYCIN HCL 1,250 MG in SODIUM CHLORIDE 0.9% 250 ML IV SCH (08:00)
[2019-10-05] MEDS: NORMOSOL-R 1,000 ML IV SCH ×2 (08:01→17:15)
[2019-10-05] MEDS: OSELTAMIVIR PHOSPHATE SUSP 30 MG/5 ML UDP PO SCH ×2 (08:02→22:18)
[2019-10-05] MEDS: LEVOTHYROXINE SODIUM 75 MCG in SYRINGE 0 ML IV SCH (08:37)
--- NOTE | 2019-10-05 09:24 | XRay Report ---
SINGLE VIEW CHEST CLINICAL HISTORY: Respiratory failure. FINDINGS: An AP, portable, upright chest radiograph is compared to chest x-ray and chest CT dated 09/08. The examination is degraded by portable technique and patient rotation. An endotracheal tube and a left subclavian central venous catheter are unchanged in position. The heart is enlarged noting atherosclerotic calcification of the thoracic aorta. There is pulmonary vascular congestion and mild interstitial edema. There is elevation of left hemidiaphragm with associated atelectasis. Small pleu ral effusions are identified with bibasilar consolidation. No pneumothorax is seen. The skeletal stru ctures are osteopenic. The bony thorax is grossly intact. IMPRESSION: 1. Cardiomegaly with evidence of congestive failure and mild interstitial edema. 2. Small pleural effusions. 3. Bibasilar consolidation is unchanged. Correlate clinically for evidence of pneumonia. 4. Stable lines and tubes. ACT 112: Negative or not required by law. Electronically signed by: Pascual Hdz M.D. 10/05/2019 9:23 AM
--- NOTE | 2019-10-05 09:56 | Pharmacy Report ---
Pharmacy Abx Dose Short Note - Date of Service October 05, 2019 - Assessment & Plan Assessment 84 year old M receiving IV Vancomycin and Cefepime for treatment of B/L pneumonia Day #2 of antimicrobial therapy. Plan Vancomycin * Changed to Q16H dosing as renal function improves * Goal trough level: 15 to 20 mcg/mL * Trough ordered for: 10/06/19 @ 1530 Cefepime IV * Changed to target dose of 2g IV Q8H dosing as renal function is now >60 ml/min Pharmacy will continue to follow and will adjust dose/frequency as necessary. Thank you.
[2019-10-05] MEDS: CEFEPIME 2,000 MG/20 ML VIAL IV SCH ×2 (10:30→17:16)
--- NOTE | 2019-10-05 13:50 | Hospitalist Progress Note ---
Date of Service October 05, 2019 Assessment & Plan (1) Sepsis with acute hypoxic respiratory failure and septic shock: (2) Influenza A: (3) Bilateral pneumonia: (4) Respiratory acidosis: Present to the ED after found unresponsive at [facility] CT chest showed left greater than right bibasilar consolidation suggests pneumonia or aspiration pneumonitis Influenza A PCR positive Sedated and intubated on Vent Support Vent management as per player manager Received IV broad-spectrum antibiotic with vancomycin and cefepime. Continue Tamiflu via NGT Continue IVF and pressor with norepinephrine Continue monitor closely in the ICU (5) Afib: Rate has been btw 90 to 100's Continue Metoprolol Not on anticoagulant due to hx of GIB in 2018 (6) Congestive heart failure: Hx of chronic diastolic CHF CXR showed cardiomegaly with evidence of congestive failure and mild interstitial edema. Last echo 2018 EF 57%, LA severely enlarged, calcified AV, no stenosis Will consider to get an echo once clinically improves Lasix was discontinued on last admission at [place] 09/24 Continue Monitor closely (7) Hypertension: Continue to hold hold losartan, metoprolol in setting of septic shock Continue Monitor BP (8) Hyperlipidemia: Continue statin (9) Hypothyroidism: continue synthroid to IV for now while intubated (10) Benign prostatic hyperplasia with urinary obstruction: On hold flomax and finasteride while intubated (11) Dementia: hx of delirium Sedated and intubated (12) DVT prophylaxis: Heparin Disposition Continue monitor in the ICU Admission and Anticipated Discharge Date Admission Date: October 04, 2019 Subjective Pt was seen and examined Lying in bed sedated on Vent support BP stable and on pressor Updated provided to the son Physical Exam Physical Exam: General- sedated on vent support Head- atraumatic Eyes- PERRL, EOMI, ENT- Intubated Neck- supple, no JVD Lungs- Coarse BS Heart- regular rhythm; no murmur Abdomen- normal bowel sounds, soft, nontender Extremities- no calf tenderness Neuro- alert, oriented x 3; PERRL, EOMI; no facial palsy; no dysarthria Skin- warm & dry Results & Data ([facility]) Vital Signs (Past 12 Hours) Vital Signs Temp Pulse Resp BP Pulse Ox 10/05/19 12:00 102 H 10/05/19 10:01 102 H 20 92 10/05/19 09:50 94 H 92 10/05/19 09:40 101 H 19 95 10/05/19 08:00 94 H 10/05/19 07:43 94 H 20 94 10/05/19 06:33 91 H 107/68 94 10/05/19 06:18 90 99/57 L 95 10/05/19 06:03 91 H 105/63 96 10/05/19 05:49 97 H 111/60 96 10/05/19 05:33 104 H 103/70 93 10/05/19 05:18 91 H 109/69 95 10/05/19 05:10 94 H 20 95 10/05/19 05:03 98 H 104/69 91 10/05/19 04:48 93 H 101/66 91 10/05/19 04:33 93 H 115/73 95 10/05/19 04:18 88 116/78 96 10/05/19 04:03 36.5 C 96 H 117/84 96 10/05/19 03:48 102 H 117/89 95 10/05/19 03:33 91 H 119/77 95 10/05/19 03:18 94 H 95/63 L 92 10/05/19 03:03 97 H 113/71 94 10/05/19 02:48 90 144/72 H 95 10/05/19 02:33 94 H 124/76 93 10/05/19 02:18 86 20 108/73 94 10/05/19 02:03 92 H 108/86 95 10/05/19 01:49 102 H 124/75 94 (1) Bilateral pneumonia Lung location: unspecified part of lung Pneumonia type: due to unspecified organism Qualified Code(s): J18.9 - Pneumonia, unspecified organism
--- NOTE | 2019-10-05 15:14 | Critical Care Progress Note ---
Date of Service October 05, 2019 Assessment & Plan (1) Sepsis with acute hypoxic respiratory failure and septic shock: Reason Critically Ill: 84 yo male right lower lobe pneumonia secondary to influenza A A long discussion was held with son (WAQAS) and grandson upon arrival to ICU. Patient does have living will in place. In the setting of acute illness, WAQAS states that patient will be DNR in the setting of a cardiac arrest, he would not want dialysis, nor would he want a tracheostomy. Neuro: [facility] ICU: negative. Hx Dementia- baseline uncertain. -Starting Precedex to facilitate noninvasive mechanical ventilation -Discontinue Versed and fentanyl and propofol Cardiac: hypotension -resolved vasoactive medication discontinued yesterday Hx A-fib - paroxysmal. -Long-term anticoagulation contraindicated: Fall risk outweighs stroke risk -Metoprolol 5 mg every 6 hours Hx CHF - chest CT obtained on admission showed trace bilateral pleural effusions, no gross volume overload. continue to monitor in the setting of volume replacement. Respiratory: Acute hypoxemic respiratory failure -: Improved -Self extubation October 05, 2019 -Okay to proceed with noninvasive ventilation -Discussed with son regarding reintubation Influenza A with suspected superimposed bacterial PNA - continue IV cefepime -Discontinue vancomycin, MRSA swab negative - continue Tamiflu (day 2 of 5) GI: NPO -Speech, PT, OT evaluations for tomorrow RENAL/LYTES: Mild hypophosphatemia -Decrease Normosol to 70 mL's : UA equivocal. Culture pending. ENDO: no underlying history of diabetes. ICU protocol for hyperglycemia. Hx hypothyroidism - continue home levothyroxine. HEME: Lovenox DVT prophylaxis -Transition from heparin to minimize agitation from frequent injections ID: Sepsis influenza pneumonia -Continue cefepime, Tamiflu LINES/IV ACCESS: arterial line: Anticipate discontinuation tomorrow PIV x 2 Left subclavian triple lumen CVC: Anticipate discontinuation tomorrow CODE STATUS: DO NOT RESUSCITATE in event of cardiac arrest DVT PROPHYLAXIS: Lovenox Present on Admission?: Yes (2) Influenza A: (3) Acute hypoxemic respiratory failure: Present on Admission?: Yes (4) Admitted to intensive care unit: (5) Dementia: (6) Afib: (7) History of CVA (cerebrovascular accident): (8) Protein calorie malnutrition: (9) PVD (peripheral vascular disease): (10) Bilateral pneumonia: Subjective No overnight events, patient largely agitated with sedation vacation, ultimately he self extubated. I discussed this with the patient's son, at this time given his renal dysfunction the patient son would agree with noninvasive mechanical ventilation if it appears that his kidney function is getting worse and would require dialysis and this possibly impact his respiratory status he states his father would prefer to be transitioned to comfort care, if it appears that the kidneys would improve and the need for mechanical ventilation be short-term and temporary his father would agree with reintubation if needed. In discussion with the patient's son and patient's grandson, son's nephew yesterday the patient would not desire long-term anticoagulation for atrial fibrillation. He has been on this in the past however he has suffered falls recently and all agree that bleeding risk outweigh stroke prevention risk. Review of Systems Review of Systems: Unobtainable due to cognitive status Physical Exam Physical Exam: General: Alert. Glascow Coma Scale: Eyes: 2, Verbal 2, Motor 5, Total 9 Skin: Warm, dry, Head: Atraumatic Ears, nose, mouth and throat: airway patent Cardiovascular: Normal peripheral perfusion Respiratory: no respiratory distress, noisy breath sounds Gastrointestinal: Non distended Musculoskeletal: No deformity Results & Data ([facility]) Vital Signs (Past 12 Hours) Vital Signs Temp Pulse Resp BP Pulse Ox 10/05/19 14:04 131 H 139/93 86 L 10/05/19 14:00 121 H 92 10/05/19 13:34 110 H 128/75 94 10/05/19 13:07 110 H 14 94 10/05/19 13:04 117 H 105/73 94 10/05/19 13:00 103 H 93 10/05/19 12:34 110 H 122/77 93 10/05/19 12:04 108 H 123/75 92 10/05/19 12:00 105 H 92 10/05/19 11:34 115 H 117/79 92 10/05/19 11:03 101 H 122/62 91 10/05/19 11:00 103 H 91 10/05/19 10:34 107 H 109/85 93 10/05/19 10:04 110 H 116/63 93 10/05/19 10:01 102 H 20 92 10/05/19 10:00 97 H 92 10/05/19 09:50 94 H 92 02/29/20 09:40 101 H 19 95 02/29/20 09:34 93 H 106/68 95 10/05/19 09:04 95 H 105/57 L 95 10/05/19 09:00 102 H 95 10/05/19 08:33 96 H 111/63 94 10/05/19 08:04 93 H 91/54 L 93 10/05/19 08:00 96 H 94 10/05/19 07:48 93 H 112/62 94 10/05/19 07:43 94 H 20 94 10/05/19 07:33 108 H 102/60 94 10/05/19 07:18 97 H 109/61 94 10/05/19 07:03 95 H 98/60 L 95 10/05/19 07:00 94 H 95 10/05/19 06:48 94 H 116/65 94 10/05/19 06:34 97 H 94 10/05/19 06:33 91 H 107/68 94 10/05/19 06:18 90 99/57 L 95 10/05/19 06:03 91 H 105/63 96 10/05/19 05:49 97 H 111/60 96 10/05/19 05:33 104 H 103/70 93 10/05/19 05:18 91 H 109/69 95 10/05/19 05:10 94 H 20 95 10/05/19 05:03 98 H 104/69 91 10/05/19 04:48 93 H 101/66 91 10/05/19 04:33 93 H 115/73 95 10/05/19 04:18 88 116/78 96 10/05/19 04:03 36.5 C 96 H 117/84 96 10/05/19 03:48 102 H 117/89 95 10/05/19 03:33 91 H 119/77 95 10/05/19 03:18 94 H 95/63 L 92 Coding Level of Care Code Critical Care 1st 30-74 mins Diagnoses Sepsis with acute hypoxic respiratory failure and septic shock A41.9; R65.21; J96.01 Influenza A J10.1 Acute hypoxemic respiratory failure J96.01 Admitted to intensive care unit Z78.9 Dementia F03.90 Afib I48.91 History of CVA (cerebrovascular accident) Z86.73 Protein calorie malnutrition E46 PVD (peripheral vascular disease) I73.9 Bilateral pneumonia J18.9 Lung location: unspecified part of lung Pneumonia type: due to unspecified organism Time Spent (min) 65 Comment I have personally spent 65 minutes of critical care time in the direct management of this patient. This is a life/limb threatening event. This includes time spent evaluating patient, direct bedside care, chart review, placing orders, interpretation of diagnostic studies, discussion with consultants, patient, and/or family members regarding treatment decisions, as well as other required patient management activities. This time is exclusive of all separately billable procedures, and teaching time and separate from and in addition to any other critical care service time. (1) Sepsis with acute hypoxic respiratory failure and septic shock Qualified Code(s): A41.9 - Sepsis, unspecified organism; R65.21 - Severe sepsis with septic shock; J96.01 - Acute respiratory failure with hypoxia (2) Bilateral pneumonia Lung location: unspecified part of lung Pneumonia type: due to unspecified organism Qualified Code(s): J18.9 - Pneumonia, unspecified organism
[2019-10-05] MEDS: DEXMEDETOMIDINE HCL 200 MCG in SODIUM CHLORIDE 0.9% 48 ML IV SCH (15:18)
[2019-10-05] MEDS ORDERED: POTASSIUM PHOS 3 MMOL/1 ML INFUSION IV STA (17:20)
[2019-10-05] MEDS ORDERED: POTASSIUM PHOSPHATE 15 MMOL in SODIUM CHLORIDE 0.9% 250 ML IV ONE (17:30)
[2019-10-05] MEDS: METOPROLOL TARTRATE 1 MG/ML VIAL IV SCH (18:08)
[2019-10-06] MEDS ORDERED: VANCOMYCIN HCL 1,250 MG in SODIUM CHLORIDE 0.9% 250 ML IV SCH
[2019-10-06 00:30] LABS: Base Excess VBG 1.8 mEq/L; Oxygen Saturation VBG 83.6 %; pH VBG 7.22 (7.36-7.41)
[2019-10-06] MEDS: METOPROLOL TARTRATE 1 MG/ML VIAL IV SCH ×4 (00:48→16:58)
[2019-10-06] MEDS ORDERED: VANCOMYCIN TROUGH ONE ×2 (01:30→15:30)
[2019-10-06] MEDS: CEFEPIME 2,000 MG/20 ML VIAL IV SCH ×3 (02:15→18:09)
[2019-10-06 02:46] LABS: Basophils # (auto) 0.01 K/uL (0-0.2); Basophils % (auto) 0.1 %; Eosinophils # (auto) 0.03 K/uL (0-0.5); Eosinophils % (auto) 0.4 %; Hematocrit (blood only) 43.3 % (42-52); Hemoglobin 13.3 g/dL (14.0-18.0); Immature Granulocytes # (auto) 0.02 K/uL (0.00-0.02); Immature Granulocytes % (auto) 0.3 %; Lymphocytes # (auto) 0.33 K/uL (1.2-3.4); Lymphocytes % (auto) 4.4 %; Mean Corpuscular Hemoglobin 30.6 pg (25-34); Mean Corpuscular Hgb Conc 30.7 g/dL (32-36); Mean Corpuscular Volume 99.8 fL (80-100); Mean Platelet Volume 10.2 fL (7.4-10.4); Monocytes # (auto) 0.42 K/uL (0.11-0.59); Monocytes % (auto) 5.6 %; Neutrophils # (auto) 6.66 K/uL (1.4-6.5); Neutrophils % (auto) 89.2 %; Platelet Count 153 K/uL (130-400); RDW Coefficient of Variation 14.7 % (11.5-14.5); RDW Standard Deviation 53.2 fL (36.4-46.3); Red Blood Count 4.34 M/uL (4.7-6.1); White Blood Count 7.47 K/uL (4.8-10.8)
[2019-10-06 02:53] LABS: Base Excess VBG 3.3 mEq/L; HCO3 VBG 32 mmol/L; PCO2 VBG 65 mmHg (38-50); PO2 VBG 34 mmHg
[2019-10-06 02:54] LABS: Oxygen Saturation VBG < 60.0 %
[2019-10-06 03:11] LABS: Albumin Level 2.4 gm/dl (3.4-5.0); BUN Creatinine Ratio 27.3 (10-20); Calcium 8.7 mg/dl (8.5-10.1); Creatinine Clr Calc Pharmacy 73.6 ml/min; Est GFR (African American) 94.1; Est GFR (Non-African American) 81.2; Magnesium 2.2 mg/dl (1.8-2.4); Potassium 4.5 mmol/L (3.5-5.1)
[2019-10-06 03:14] LABS: Albumin Globulin Ratio 0.6 (0.9-2); Bilirubin,Total 0.5 mg/dl (0.2-1); Globulin 3.9 gm/dl (2.5-4.0); Phosphorus 2.2 mg/dl (2.5-4.9); Total Protein 6.3 gm/dl (6.4-8.2)
[2019-10-06] MEDS: DEXMEDETOMIDINE HCL 200 MCG in SODIUM CHLORIDE 0.9% 48 ML IV SCH ×2 (03:45→20:46)
[2019-10-06] MEDS: NORMOSOL-R 1,000 ML IV SCH ×2 (05:10→18:27)
[2019-10-06] MEDS ORDERED: CARBOHYDRATES FOR HYPOGLYCEMIA PO PRN (06:09)
[2019-10-06] MEDS ORDERED: GLUCOSE 40% GEL 15 GM TUBE PO PRN (06:09)
[2019-10-06] MEDS ORDERED: GLUCOSE 10 TABS/TUBE PO PRN (06:09)
[2019-10-06] MEDS ORDERED: DEXTROSE 50% 50 ML SYRINGE IV PRN (06:09)
[2019-10-06] MEDS ORDERED: GLUCAGON FOR INJ 1 MG VIAL SQ PRN (06:09)
[2019-10-06] MEDS ORDERED: DEXTROSE 50% 50 ML SYRINGE IV ONE (06:10)
[2019-10-06] MEDS: ENOXAPARIN INJ 40 MG/0.4 ML SYR SQ SCH (08:40)
[2019-10-06] MEDS: LEVOTHYROXINE SODIUM 75 MCG in SYRINGE 0 ML IV SCH (09:47)
[2019-10-06] MEDS: OSELTAMIVIR PHOSPHATE SUSP 30 MG/5 ML UDP PO SCH (09:48)
--- NOTE | 2019-10-06 09:58 | Critical Care Progress Note ---
Date of Service October 06, 2019 Assessment & Plan (1) Sepsis with acute hypoxic respiratory failure and septic shock: Reason Critically Ill: 84 yo male right lower lobe pneumonia secondary to influenza A Patient does have living will in place. In the setting of acute illness, POA states that patient will be DNR in the setting of a cardiac arrest, he would not want dialysis, nor would he want a tracheostomy. Per for thorough discussions between Dr. Cross and family, patient's is to be no escalation of care at this time, DNR/DNI. Neuro: [facility] ICU: negative. Hx Dementia- baseline uncertain. -Continue Precedex to facilitate noninvasive mechanical ventilation Cardiac: hypotension -resolved vasoactive medication discontinued yesterday Hx A-fib - paroxysmal. -Long-term anticoagulation contraindicated: Fall risk outweighs stroke risk -Metoprolol 5 mg every 6 hours Hx CHF - chest CT obtained on admission showed trace bilateral pleural effusions, no gross volume overload. continue to monitor in the setting of volume replacement. Respiratory: Acute hypoxemic respiratory failure -: Improved -Self extubation October 05, 2019 -Now on BiPAP as patient was becoming hypercarbic overnight with CO2 of 80 on VBG, improving -Per discussion between Dr. Cross and family, patient is not to be reintubated at this time Influenza A with suspected superimposed bacterial PNA - continue IV cefepime -Discontinue vancomycin, MRSA swab negative - continue Tamiflu (day 2 of 5) GI: NPO -Speech, PT, OT evaluations for tomorrow RENAL/LYTES: Replete electrolytes as necessary Continue IV fluids : UA equivocal. Culture pending. ENDO: no underlying history of diabetes. ICU protocol for hyperglycemia. Hx hypothyroidism - continue home levothyroxine. HEME: Lovenox DVT prophylaxis -Transition from heparin to minimize agitation from frequent injections ID: Sepsis influenza pneumonia -Continue cefepime, Tamiflu LINES/IV ACCESS: arterial line: Anticipate discontinuation tomorrow PIV x 2 Left subclavian triple lumen CVC: Anticipate discontinuation tomorrow CODE STATUS: DO NOT RESUSCITATE in event of cardiac arrest DVT PROPHYLAXIS: Lovenox (2) Influenza A: (3) Acute hypoxemic respiratory failure: (4) Admitted to intensive care unit: (5) Dementia: (6) Afib: (7) History of CVA (cerebrovascular accident): (8) Protein calorie malnutrition: (9) PVD (peripheral vascular disease): (10) Bilateral pneumonia: Supervising Physician Co-Signing Physician Notes I have personally evaluated and examined this patient. I agree with assessment and plan of Julissa PETERSON. Subjective Mr. Saravia was extubated yesterday and patient did remain lethargic but seem to be protecting his airway and maintaining oxygen saturations throughout the night. A VBG was collected and revealed a respiratory acidosis at which patient was placed on BiPAP and showed improvement on the next gas. He remains on BiPAP at this time. Further discussions between Dr. Cross and patient's family concluded that we will not pursue escalation of care and patient's family will begin in the morning and will discuss goals of care further at that time. Patient DNR/DNI at this time with no escalation of care. Review of Systems Review of Systems: Unobtainable due to reduced consciousness Physical Exam Eyes: PERRL, conjunctivae normal, anicteric sclerae ENMT: external ear and nose normal, oropharynx normal Neck: trachea midline, no thyromegaly Respiratory: Initial lung sounds bilaterally, symmetrical chest wall movement, nonlabored shallow breathing Cardiovascular: Patient in A. fib on monitor, currently tachycardic in the 120s, no JVD, capillary refill normal, no edema Gastrointestinal (Abdomen): normal bowel sounds, soft, nontender, no hepatosplenomegaly Skin: no rashes, warm and dry Neurologic: Patient remains lethargic, does follow commands but requires multiple attempts at stimulation before arousing and shows poor participation during exam Psychiatric: Unable to assess due to lack of participation in exam Genitourinary: Indwelling Mendes present Results & Data ([facility]) Vital Signs (Past 12 Hours) Vital Signs Temp Pulse Resp BP Pulse Ox Pulse Ox 10/06/19 08:00 112 H 95 10/06/19 07:24 114 H 14 94 10/06/19 06:07 112 H 85/49 L 10/06/19 06:00 120 H 3 L 91 10/06/19 05:29 102 H 5 L 85/59 L 93 10/06/19 05:00 118 H 7 L 94 10/06/19 04:28 103 H 27 H 97/53 L 92 10/06/19 04:00 37.1 C 109 H 24 96 10/06/19 03:28 110 H 22 104/65 92 10/06/19 03:00 111 H 23 93 10/06/19 02:28 120 H 28 H 133/114 H 94 10/06/19 02:00 128 H 29 H 93 10/06/19 01:28 104 H 31 H 111/65 89 L 10/06/19 01:00 116 H 30 H 93 10/06/19 00:48 120 H 121/72 10/06/19 00:28 103 H 7 L 121/72 97 10/06/19 00:00 36.9 C 99 H 11 L 97 10/05/19 23:34 105 H 10/05/19 23:29 102 H 11 L 97 10/05/19 23:28 96 H 11 L 106/53 L 97 10/05/19 23:00 107 H 21 98 10/05/19 22:28 96 H 18 94/51 L 98 10/05/19 22:00 101 H 21 98 Coding Level of Care Code 55348 Subseq Hosp Care Lvl 3 Diagnoses Sepsis with acute hypoxic respiratory failure and septic shock A41.9; R65.21; J96.01 Influenza A J10.1 Acute hypoxemic respiratory failure J96.01 Admitted to intensive care unit Z78.9 Dementia F03.90 Afib I48.91 History of CVA (cerebrovascular accident) Z86.73 Protein calorie malnutrition E46 PVD (peripheral vascular disease) I73.9 Bilateral pneumonia J18.9 Lung location: unspecified part of lung Pneumonia type: due to unspecified organism (1) Sepsis with acute hypoxic respiratory failure and septic shock Qualified Code(s): A41.9 - Sepsis, unspecified organism; R65.21 - Severe sepsis with septic shock; J96.01 - Acute respiratory failure with hypoxia (2) Bilateral pneumonia Lung location: unspecified part of lung Pneumonia type: due to unspecified organism Qualified Code(s): J18.9 - Pneumonia, unspecified organism
[2019-10-06 11:11] LABS: iSTAT Allen Test Pass; iSTAT Art Bld Gas pCO2 Correct 60 mmHg (35-46); iSTAT Art Bld Gas pH Corrected 7.313 (7.35-7.45); iSTAT Arterial Blood Gas HCO3 30 meg/L (19-24); iSTAT Arterial Blood Gas pCO2 60 mmHg (35-46); iSTAT Arterial Blood Gas pH 7.31 (7.35-7.45); iSTAT Arterial Blood Gas pO2 91 mmHg (80-95); iSTAT Arterial Blood Gas pO2 C 91; iSTAT Carbon Dioxide 32 mmol/L (24-31); iSTAT FiO2 40 %; iSTAT Hematocrit 39 % (42-52); iSTAT Hemoglobin 13.3 g/dl (14.0-18.0); iSTAT Potassium 4.3 mmol/L (3.3-5.0); iSTAT Site L Radial; iSTAT Sodium 140 mmol/L (135-144)
--- NOTE | 2019-10-06 18:12 | Hospitalist Progress Note ---
Date of Service October 06, 2019 Assessment & Plan (1) Sepsis with acute hypoxic respiratory failure and septic shock: (2) Influenza A: (3) Bilateral pneumonia: (4) Respiratory acidosis: Present to the ED after found unresponsive at [facility] CT chest showed left greater than right bibasilar consolidation suggests pneumonia or aspiration pneumonitis Influenza A PCR positive Self intubated today Continue IV abx with cefepime. Continue Tamiflu via NGT Off norepinephrine Blood cx no growth Insurance Compliance Analyst spoke to family, In the setting of any cardiac arrest and respiratory failure, no heroic management such as reintubation or trach Continue monitor closely in the ICU (5) Afib: Rate has been btw 90 to 100's Continue Metoprolol Not on anticoagulant due to hx of GIB in 2018 (6) Congestive heart failure: Hx of chronic diastolic CHF CXR showed cardiomegaly with evidence of congestive failure and mild interstitial edema. 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: On hold flomax and finasteride while intubated (11) Dementia: hx of delirium Sedated and intubated (12) DVT prophylaxis: Heparin Disposition Continue monitor in the ICU Admission and Anticipated Discharge Date Admission Date: October 04, 2019 Subjective Pt was seen and examined Lying in bed with no distress Pt was self intubated today Pressor and sedation discontinued Insurance Compliance Analyst spoke to family member (POA) In the setting of acute illness, cardiac arrest and respiratory failure, does not want any heroic management such as reintubation or trach Physical Exam Physical Exam: General- Minimal response Head- atraumatic Eyes- PERRL, Pulpils reacted ENT- On Bipap Neck- supple, no JVD Lungs- Coarse BS Heart- regular rhythm; no murmur Abdomen- normal bowel sounds, soft, nontender Extremities- no calf tenderness Skin- warm & dry Results & Data ([facility]) Vital Signs (Past 12 Hours) Vital Signs Temp Pulse Resp BP Pulse Ox Pulse Ox 10/06/19 17:35 112 H 17 112/63 95 10/06/19 17:30 105 H 17 91 10/06/19 17:16 130 H 15 84/57 L 10/06/19 17:00 139 H 13 97 10/06/19 16:58 125 H 121/79 10/06/19 16:45 119 H 19 121/79 97 10/06/19 16:30 119 H 18 98 10/06/19 16:15 123 H 23 117/76 97 10/06/19 16:00 107 H 17 95 10/06/19 15:45 108 H 20 103/58 L 95 10/06/19 15:30 104 H 17 94 10/06/19 15:15 117 H 20 96/78 L 94 10/06/19 15:00 128 H 24 93 10/06/19 14:45 110 H 19 104/68 94 10/06/19 14:30 115 H 20 94 10/06/19 14:15 103 H 12 108/69 96 10/06/19 14:00 115 H 12 94 10/06/19 13:51 103 H 12 100/60 96 10/06/19 13:45 124 H 23 92/63 L 94 10/06/19 13:30 116 H 23 94 10/06/19 13:15 110 H 14 99/62 L 95 10/06/19 13:00 106 H 12 94 10/06/19 12:46 118 H 12 95/61 L 95 10/06/19 12:30 125 H 12 94 10/06/19 12:18 119 H 12 93 10/06/19 12:17 115 H 12 98/60 L 93 10/06/19 12:15 114 H 12 80/56 L 93 10/06/19 12:06 110 H 107/60 10/06/19 12:05 104 H 12 107/60 93 10/06/19 12:00 36.6 C 123 H 12 92 10/06/19 11:51 100 H 12 99/69 L 93 10/06/19 11:45 108 H 12 99/68 L 91 10/06/19 11:36 100 H 12 94/61 L 92 10/06/19 11:15 106 H 12 94/61 L 92 10/06/19 11:00 121 H 12 94 10/06/19 10:50 111 H 12 92/65 L 97 10/06/19 10:46 109 H 12 96 10/06/19 10:45 99 H 12 80/52 L 96 10/06/19 10:15 106 H 12 93/54 L 95 10/06/19 10:00 97 H 12 94 10/06/19 09:45 122 H 12 99/57 L 95 10/06/19 09:16 104 H 12 99/61 L 95 10/06/19 09:15 100 H 19 99/57 L 10/06/19 09:00 98 H 26 H 97 10/06/19 08:31 108 H 26 H 92/66 L 94 10/06/19 08:29 110 H 26 H 86/59 L 94 10/06/19 08:21 126 H 19 113/67 95 10/06/19 08:00 104 H 26 H 95 95 10/06/19 07:28 126 H 26 H 95/68 L 10/06/19 07:24 114 H 14 94 10/06/19 07:00 115 H 26 H 93 10/06/19 06:28 117 H 26 H 110/55 L 94 10/06/19 06:07 112 H 85/49 L (1) Sepsis with acute hypoxic respiratory failure and septic shock Qualified Code(s): A41.9 - Sepsis, unspecified organism; R65.21 - Severe sepsis with septic shock; J96.01 - Acute respiratory failure with hypoxia (2) Bilateral pneumonia Lung location: unspecified part of lung Pneumonia type: due to unspecified organism Qualified Code(s): J18.9 - Pneumonia, unspecified organism
[2019-10-06] MEDS: OSELTAMIVIR PHOSPHATE 75 MG CAP PO SCH (21:17)
[2019-10-07] MEDS: METOPROLOL TARTRATE 1 MG/ML VIAL IV SCH ×2 (00:04→06:14)
[2019-10-07] MEDS: CEFEPIME 2,000 MG/20 ML VIAL IV SCH ×2 (02:57→10:12)
[2019-10-07] MEDS: MoRPHine SULFATE 2 MG/ML CARP IV PRN ×6 (05:11→14:54)
--- NOTE | 2019-10-07 05:32 | Communication Note ---
Date of Service: October 07, 2019 Earlier this morning patient began to remove BiPAP mask. Oxy mask was temporarily placed on the patient which he also removed. Patient is nonverbal at this point but nods assess to yes or no questions seemingly appropriately. Granted this understood the patient does have dementia and son is WAQAS. When the patient was asked if we could place the BiPAP mask back on he responded with a head shake no. When the patient was asked if he understood that he may if he does not wear the mask, he nodded yes. Patient was then asked if he would like family to be at his bedside at this time, he nodded yes. Patient's son was then contacted by the bedside nurse and the situation was explained. Per conversations with Dr. Cross and the son, patient had already been made no escalation of care. This morning, the patient's son came to the bedside and further discussion of goals of care concluded that would not would not proceed with BiPAP or oxygen therapy for patient's comfort even knowing that the patient may become hypercapnic or hypoxic and . Patient is to be made comfort care at this time. PRN morphine for pain and comfort ordered. Patient's family is at bedside. I have personally spent 30 minutes of critical care time in the direct management of this patient. This is a life/limb threatening event. This includes time spent evaluating patient, direct bedside care, chart review, placing orders, interpretation of diagnostic studies, discussion with consultants, patient, and family members, as well as other required patient management activities. This time is exclusive of all separately billable procedures, and teaching time and separate from and in addition to any other critical care service time. Thank you for allowing us to participate in the care of this patient. Please refer to my attending physician's documentation for any further recommendations. Coding Level of Care Code Critical Care 1st 30-74 mins
--- NOTE | 2019-10-07 09:19 | Critical Care Progress Note ---
Date of Service October 07, 2019 Assessment & Plan (1) Sepsis with acute hypoxic respiratory failure and septic shock: Reason Critically Ill: 84 yo male right lower lobe pneumonia secondary to influenza A Patient does have living will in place. In the setting of acute illness, POA states that patient will be DNR in the setting of a cardiac arrest, he would not want dialysis, nor would he want a tracheostomy. Per for thorough discussions between Dr. Cross and family, no escalation of care at this time, DNR/DNI. He is currently on comfort care measures with PRN morphine. Neuro: [facility] ICU: negative. Hx Dementia- baseline uncertain. Comfort Care- PRN Morphine 1mg q1h Cardiac: hypotension- most recent BP 88/52 Hx A-fib - paroxysmal. -Long-term anticoagulation contraindicated: Fall risk outweighs stroke risk -Metoprolol 5 mg every 6 hours Hx CHF - chest CT obtained on admission showed trace bilateral pleural effusions, no gross volume overload. continue to monitor in the setting of volume replacement. Respiratory: Acute hypoxemic respiratory failure : Improved -Self extubation October 05, 2019 -Discussion was held between Dr. Cross and family that determined patient was not to be reintubated. -Patient was on BiPAP which has since been discontinued. -Patient currently on comfort care measures with PRN Morphine Influenza A with suspected superimposed bacterial PNA - continue IV cefepime -Discontinue vancomycin, MRSA swab negative - Tamiflu not given, patient NPO GI: NPO RENAL/LYTES: IVF DC'd : UA equivocal. Culture showed patience albicans ENDO: no underlying history of diabetes. ICU protocol for hyperglycemia. Hx hypothyroidism - continue home levothyroxine. HEME: Lovenox DVT prophylaxis ID: Sepsis influenza pneumonia -Continue cefepime LINES/IV ACCESS: arterial line: Anticipate discontinuation PIV x 2 Left subclavian triple lumen CVC: Anticipate discontinuation tomorrow CODE STATUS:DO NOT RESUSCITATE, DO NOT INTUBATE. Patient is Comfort Care DVT PROPHYLAXIS: Lovenox DISPO: Patient to be downgraded from ICU Thank you for allowing us to participate in the care of this patient. Please refer to my attending physician's documentation for any further recommendations. (2) Influenza A: (3) Acute hypoxemic respiratory failure: (4) Admitted to intensive care unit: (5) Dementia: (6) Afib: (7) History of CVA (cerebrovascular accident): (8) Protein calorie malnutrition: (9) PVD (peripheral vascular disease): (10) Bilateral pneumonia: Admission and Anticipated Discharge Date Admission Date: October 04, 2019 Supervising Physician Co-Signing Physician Notes Dr Renyoso was the resident-physician during care of patient. I separately evaluated patient for bravo portions of the history and the exam. I was present during the critical portion of medical decision making, and I discussed the case with the resident. I generally agree with the findings and plan except for any additions/exceptions noted. 84-year-old male with past medical history of dementia was initially admitted because of hypoxic respiratory failure and altered mental status with sepsis. Self extubated on . Dr. Cross and the family had discussion regarding goals of care and they decided the patient does not want to be intubated. Overnight patient was refusing even BiPAP. Another discussion was held with changes in the family and they decided to pursue comfort measures. Continue with PRN morphine for pain. DC all sedatives, antibiotics, DC Mendes, DC central line. Downgrade to medical floor on comfort measures. I have personally spent 30 minutes of critical care time in the direct manage ment of this patient. This is a life/limb threatening event. This includes time spent evaluating patient, direct bedside care, chart review, placing orders, interpretation of diagnostic studies, discussion with consultants, patient, and/or family members regarding treatment decisions, as well as other required patient management activities. This time is exclusive of all separately billable procedures, and teaching time and separate from and in addition to any other critical care service time. Subjective Patient was noted to remove BiPAP and oxygen masks this morning. Discussion was held with son (WAQAS) and Jose Carlos Ramsey and concluded that care of patient would not proceed with BiPAP or oxygen therapy for patient's comfort. It was determin ed that patient would be made comfort care. During exam patient had several family members present. Review of Systems Review of Systems: Unobtainable due to reduced consciousness Physical Exam Constitutional: no acute distress and not in distress Eyes: + anicteric sclerae; no conjunctival abnormality ENMT: external ear and nose normal, oropharynx normal Neck: trachea midline, no thyromegaly Respiratory: no respiratory distress Auscultation: lungs clear to auscultation bilaterally and + diminished lung sounds Cardiovascular: Rate/Rhythm: + tachycardic (130's); + abnormal rate and + abnormal rhythm Vessels: no JVD Gastrointestinal (Abdomen): normal bowel sounds, soft, nontender, no hepatosplenomegaly Skin: normal turgor Neurologic: Speech / Cognition: + abnormal speech (nonverbal this AM) Lethargic, poor participation with stimulation. Psychiatric: Unable to assess due to lack of participation in exam Genitourinary: Indwelling Mendes present Results & Data ([facility]) Vital Signs (Past 12 Hours) Vital Signs Pulse Resp BP Pulse Ox 10/07/19 06:14 88/52 L 10/07/19 00:04 136 H 114/78 10/06/19 22:54 113 H 19 95 10/06/19 21:20 119 H 14 95 10/06/19 02:37 10/06/19 02:37 Critical Care Time Critical Care Time: Yes Total Critical Care Time: 30 Resident Activity Tracking Resident Involvement: Resident Care Provided Care Provided: Adult Hospital Medicine (1) Sepsis with acute hypoxic respiratory failure and septic shock Qualified Code(s): A41.9 - Sepsis, unspecified organism; R65.21 - Severe s epsis with septic shock; J96.01 - Acute respiratory failure with hypoxia (2) Bilateral pneumonia Lung location: unspecified part of lung Pneumonia type: due to unspecified o rganism Qualified Code(s): J18.9 - Pneumonia, unspecified organism
[2019-10-07] MEDS: OSELTAMIVIR PHOSPHATE 75 MG CAP PO SCH (09:54)
[2019-10-07] MEDS: LEVOTHYROXINE SODIUM 75 MCG in SYRINGE 0 ML IV SCH (10:12)
[2019-10-07] MEDS: ENOXAPARIN INJ 40 MG/0.4 ML SYR SQ SCH (10:20)
[2019-10-07] MEDS: NORMOSOL-R 1,000 ML IV SCH (10:22)
[2019-10-07] MEDS ORDERED: D5W AND 1/2NSS 1,000 ML IV SCH (10:30)
[2019-10-07] MEDS ORDERED: LORazepam 0.5 MG/1 ML VIAL IV PRN (10:40)
[2019-10-07] MEDS ORDERED: GLYCOPYRROLATE 0.2 MG/ML VIAL IV PRN (10:40)
--- NOTE | 2019-10-07 10:41 | Palliative Care Consultation ---
Date of Consultation October 07, 2019 Assessment & Plan (1) Comfort measures only status: -84 year old male patient with PMH afib ,htn, CHF, PVD, hld, hypothyroidism, GIB, C. diff, and others, presented to the hospital with c/o unresponsiveness from [facility] acute rehab. Patient was was apparently just in [facility] from 09/20-09/24 and discharged to [facility] for rehab due to weakness, falls, dysphagia, and protein calorie malnutrition. I believe patient was started on abx for respiratory source at [facility], and on Monday was found by his son to be blue and unresponsive. Staff checked his pulse ox which was in the 60s. In the ED, patient was hypotensive as well. he was placed on Bipap but eventually needed to be intubated. He underwent bronchoscopy on 10/04 and was extubated on . Unfortunately, patient was still not doing well and the discussion of goals of care was had with patient's family by the hvac project manager. Family decided to not escalate care and not reintubate. Supportive care with bipap and abx was continued. Last night/early this morning, patient was agitated and removing the bipap, stating he did not want to wear it even if it meant he could . Patient's son/POA, Yaniv, was contacted by ICU provider. Yaniv came to the bedside and discussed with the SIGNALING PROJECT ENGINEER in ICU. Based on patient's wishes and his worsening condition, decision was made to transition to comfort measures only. Palliative care is consulted. -Met with patient, his son/POA Yaniv, three grandsons and a son-in-law, in room 103. Patient is unresponsive but in no distress. -Spoke with Yaniv who states that the goal is strictly for comfort at this point. I reiterated the plan for [employer]EN[employer] and that they do not wish to have any further IVF, abx, medications unrelated to comfort or further lab draws. Yaniv agrees. -Will order morphine 2mg IV Q1h PRN pain or SOB. Family aware of secondary side effects of medication. -Lorazepam 0.5mg IV Q4h PRN anxiety/agitation. -Atropine 1% oph soln 4 drops SL Q1h PRN secretions. -Robinul 0.2mg IV Q4h PRN secretions. -Patient is obtunded, requiring IV morphine for comfort at this time. Not stable for transfer out of facility at this time. Support given to family. -We will continue to follow. (2) Acute hypoxemic respiratory failure: (3) Sepsis with acute hypoxic respiratory failure and septic shock: Qualified Code(s): A41.9 - Sepsis, unspecified organism; R65.21 - Severe sepsis with septic shock; J96.01 - Acute respiratory failure with hypoxia (4) Influenza A: History of Present Illness Attending Physician: Dawson Ireland MD History of Present Illness This 84 year old male patient with PMH afib ,htn, CHF, PVD, hld, hypothyroidism, GIB, C. diff, and others, presented to the hospital with c/o unresponsiveness from [facility] acute rehab. Patient was was apparently just in [facility] from 09/20-09/24 and discharged to [facility] for rehab due to weakness, falls, dysphagia, and protein calorie malnutrition. I believe patient was started on abx for respiratory source at [facility], and on Monday was found by his son to be blue and unresponsive. Staff checked his pulse ox which was in the 60s. In the ED, patient was hypotensive as well. he was placed on Bipap but eventually needed to be intubated. He underwent bronchoscopy on 10/04 and was extubated on . Unfortunately, patient was still not doing well and the discussion of goals of care was had with patient's family by the hvac project manager. Family decided to not escalate care and not reintubate. Supportive care with bipap and abx was continued. Last night/early this morning, patient was agitated and removing the bipap, stating he did not want to wear it even if it meant he could . Patient's son/POA, Yaniv, was contacted by ICU provider. Yaniv came to the bedside and discussed with the SIGNALING PROJECT ENGINEER in ICU. Based on patient's wishes and his worsening condition, decision was made to transition to comfort measures only. Palliative care is consulted. Thank you kindly for this consult. Palliative care team will follow as needed. Allergies Allergy/AdvReac Type Severity Reaction Status Date / Time No Known Drug Allergies Allergy Verified 10/04/19 13:39 Home Medications Home Medications Medication Instructions Recorded Confirmed Type atorvastatin 10 mg tablet 10 mg PO QDD tab 12/20/18 10/04/19 History docusate sodium 100 mg tablet 100 mg PO BID tab 12/20/18 10/04/19 History ferrous sulfate 325 mg (65 mg 325 mg PO QDB tab 12/20/18 10/04/19 History iron) tablet finasteride 5 mg tablet 5 mg PO DAILY #30 tab 12/20/18 10/04/19 History tamsulosin 0.4 mg capsule 0.4 mg PO QDD #30 cap 12/20/18 10/04/19 History acetaminophen [Tylenol] 650 mg PO Q4H PRN 10/04/19 10/04/19 History bisacodyl [Dulcolax (bisacodyl)] 10 mg HI DAILY PRN 10/04/19 10/04/19 History cholecalciferol (vitamin D3) 3,000 unit PO DAILY 10/04/19 10/04/19 History [Vitamin D3] cyanocobalamin (vitamin B-12) 1,000 mcg PO DAILY 10/04/19 10/04/19 History dextromethorphan-guaifenesin 5 ml PO Q6H 10/04/19 10/04/19 History heparin (porcine) 5,000 unit SUBCUT Q12H 10/04/19 10/04/19 History ipratropium-albuterol 3 ml INHALATION QID 10/04/19 10/04/19 History levofloxacin 500 mg PO DAILY 10/04/19 10/04/19 History levothyroxine [Synthroid] 150 mcg PO DAILY 10/04/19 10/04/19 History losartan 25 mg PO DAILY 10/04/19 10/04/19 History metoprolol succinate [Toprol XL] 50 mg PO DAILY 10/04/19 10/04/19 History pantoprazole [Protonix] 40 mg PO DAILYBB 10/04/19 10/04/19 History polyethylene glycol 3350 [Miralax] 17 g PO QDL PRN 10/04/19 10/04/19 History prednisone 10 mg PO TID 10/04/19 10/04/19 History sennosides-docusate sodium [Senna 1 tab-cap PO QDL PRN 10/04/19 10/04/19 History with Docusate Sodium] sodium phosphates [Enema] 133 ml HI DAILY PRN 10/04/19 10/04/19 History Patient History Medical History (Updated 10/07/19 @ 10:41 by NICHOLAS Martinez) Anemia (Acute) Atrial fib/flutter, transient Congestive heart failure (Acute) Dementia DVT prophylaxis History of CVA (cerebrovascular accident) History of GI bleed 01/16/2018 oozing gastric ulcer, clips placed repeat EGD 03/2018 healed gastric ulcer History of renal calculi Hx of Clostridium difficile infection Hyperlipidemia (Acute) Hypertension (Acute) Hypothyroidism (Acute) Protein calorie malnutrition PVD (peripheral vascular disease) Surgical History (Updated 10/04/19 @ 15:35 by Amanda Taveras PA-C) History of cataract extraction History of elbow surgery History of lithotripsy History of tonsillectomy and adenoidectomy History of total hip arthroplasty R ZA 11/29/2017 Family History Father COPD (chronic obstructive pulmonary disease) Mother Diabetes Uterine cancer Social History Preferred Language: Turkmen Communication Ability: Unable Communication Ability Comment: Intubated Beliefs That Will Affect Care: None marital status: / marital status details: passed ~ 2 weeks ago Current Living Situation: Rehab Current Living Situation Comment: [facility] Feels Safe at Home: Yes Smoking Status: Unknown if ever smoked Review of Systems Review of Systems: Unobtainable due to cognitive status and Unobtainable due to reduced consciousness Physical Exam Constitutional: + ill appearing and + frail appearing ENMT: external ear and nose normal, oropharynx normal Respiratory: normal respiratory effort, lungs clear to auscultation Cardiovascular: RRR, no murmur, no edema Gastrointestinal (Abdomen): Inspection/Auscultation: abdomen not distended Percussion/Palpation: abdomen soft Skin: + pallor Neurologic: + obtunded Results & Data Vital Signs (Past 12 Hours) Vital Signs Pulse Resp BP Pulse Ox 10/07/19 08:00 136 H 10/07/19 06:14 88/52 L 10/07/19 00:04 136 H 114/78 10/06/19 22:54 113 H 19 95 Coding Level of Care Code 49434 Inpt Consult Level 3 Diagnoses Comfort measures only status Z51.5 Acute hypoxemic respiratory failure J96.01 Sepsis with acute hypoxic respiratory failure and septic shock A41.9; R65.21; J96.01 Influenza A J10.1 Time Spent (min) 70 Time Spent Midlevel 70 minutes with >50% of the time spent at bedside with patient and family discussing comfort measures and end of life issues.
[2019-10-07] MEDS ORDERED: ATROPINE SULFATE 1% OP SOLN 5 ML BTL SL PRN (11:00)
--- NOTE | 2019-10-07 12:42 | Billing Data ---
Date of Service October 07, 2019 Coding Level of Care Code Critical Care 1st 30-74 mins Time Spent (min) 30
--- NOTE | 2019-10-07 13:35 | Hospitalist Progress Note ---
Date of Service October 07, 2019 Assessment & Plan (1) Sepsis with acute hypoxic respiratory failure and septic shock: (2) Influenza A: (3) Bilateral pneumonia: (4) Respiratory acidosis: Present to the ED after found unresponsive at [facility] CT chest showed left greater than right bibasilar consolidation suggests pneumonia or aspiration pneumonitis Influenza A PCR positive Self intubated today Continue IV abx with cefepime. Continue Tamiflu via NGT Off norepinephrine Blood cx no growth Senior Budget Analyst spoke to family, In the setting of any cardiac arrest and respiratory failure, no heroic management such as reintubation or trach Palliative care spoke to the sons Son Yaniv who is POA was made comfort measure only. Son understands that we will discontinue abx, IVF and unrelated meds Morphine and Ativan started for comfort Will transfer to medical floor (5) Afib: Rate has been btw 90 to 100's Continue Metoprolol Not on anticoagulant due to hx of GIB in 2018 (6) Congestive heart failure: Hx of chronic diastolic CHF CXR showed cardiomegaly with evidence of congestive failure and mild interstitial edema. Last echo 2018 EF 57%, LA severely enlarged, calcified AV, no stenosis Will consider to get an echo once clinically improves Lasix was discontinued on last admission at [place] 09/24 Made comfort measure only (7) Hypothyroidism: D/C IV Levothyroxine since pt was made comfort care only (8) DVT prophylaxis: Heparin discontinued due to comfort care only Disposition Transfer to medical Admission and Anticipated Discharge Date Admission Date: October 04, 2019 Subjective Pt was seen and examined Lying in bed with family member at bedside He was made comfort measure only Pt seems to be comfortable He responds to question by nodded his head Son said that he has not been talking Pt nodded that he does not have any pain Physical Exam Physical Exam: General- Minimal response Head- atraumatic Eyes- PERRL, Pulpils reacted Neck- supple, no JVD Lungs- Diminished BS Heart- Tachycardia Abdomen- normal bowel sounds, soft, nontender Extremities- no calf tenderness Skin- warm & dry Results & Data ([facility]) Vital Signs (Past 12 Hours) Vital Signs Pulse Resp BP Pulse Ox 10/07/19 10:00 142 H 2 L 85 L 10/07/19 09:00 123 H 15 82 L 10/07/19 08:00 135 H 6 L 84 L 10/07/19 07:01 114 H 22 86 L 10/07/19 06:14 88/52 L (1) Sepsis with acute hypoxic respiratory failure and septic shock Qualified Code(s): A41.9 - Sepsis, unspecified organism; R65.21 - Severe sepsis with septic shock; J96.01 - Acute respiratory failure with hypoxia (2) Bilateral pneumonia Lung location: unspecified part of lung Pneumonia type: due to unspecified organism Qualified Code(s): J18.9 - Pneumonia, unspecified organism
--- NOTE | 2019-10-07 18:02 | Death Summary ---
Date of Service October 07, 2019 Pronouncement Note Contributing Factors (1) Sepsis with acute hypoxic respiratory failure and septic shock: (2) Influenza A: (3) Bilateral pneumonia: (4) Respiratory acidosis: (5) Afib: (6) Congestive heart failure: (7) Hypothyroidism: (8) DVT prophylaxis: Summary Additional details: Nurse called that pt was at 1600. Nurse said that family was at bedside and just left the room. certificate completed and signed Additional Data Confirmation of : no pulse, no respirations, no heart sounds, pupils fixed and dilated and other (No babinsky signs, no withdrawn extremities with painful stimuli.) Attending physician: Dawson Ireland MD
--- NOTE | 2019-10-09 17:15 | Discharge Summary ---
Date of Service October 07, 2019 Admission HPI Per Admitting Provider This an 84-year-old male who has significant PMH of atrial fibrillation, HTN, history of CHF, PVD, HLD, hypothyroidism, history of GI bleed, history of C. difficile, cognitive deficit who presents to ED secondary to being found unresponsive at [facility]. History unobtainable from patient as he is currently intubated. History obtained from nursing [facility] and ED provider. Patient was admitted to [facility] after short hospitalization at [facility] from 09/20 to 09/24. Admitted to [facility] on 09/24 secondary to frequent falls and lower extremity weakness, dysphagia and PCM. He had been doing well up until 09/30 when he developed URI-like symptoms. Sputum culture was obtained which returned positive for influenza A on 10/03. On 10/03 he was started on Levaquin 500 mg daily in which she has had 2 doses and prednisone 10 mg 3 times daily which he has had 3 doses. He started to become hypoxic on 10/01 requiring O2 via NC. He was last seen well by nursing at approximately 1045 with a very moist, wet but nonproductive cough. At approximately 12 PM he was found unresponsive by sonnupur with O2 saturations in the 60s. He was transferred to ED on BiPAP. Due to persistent hypoxia he required urgent mechanical ventilation and intubation. In ED initially SBP in the 150s however dropped significantly to SBP in the 60s requiring initiation of IV vasopressors norepinephrine. He was successfully intubated. Notable lab abnormalities include significant respiratory acidosis with pH 7.2, PCO2 74. Positive for influenza A. Lactic acid was WNL. WBC 13., H&H stable at 15.6 28.4, BUN 23, creatinine 1.29, glucose 126. Imaging revealed left greater than right bibasilar consolidation suggesting pneumonia or aspiration pneumonitis. Additional multifocal central lobar tree-in-bud micronodules suggest additional areas of pneumonitis/bronchiolitis. Mild mediastinal adenopathy, likely reactive. ET tube terminating 2.6 cm superior to the wade. Bronchial wall thickening with bibasilar mucous plugging. He received 2.5 L of IV fluid resuscitation along with broad-spectrum antibiotic initiation IV vancomycin and cefepime. NG tube order placed initiation of oral Tamiflu. Admission Exam Per Admitting Provider Constitutional: Elderly male, intubated and sedated, restless legs, ET tube in place, NAD Head: Normocephalic, Atraumatic Eyes: Pupils pinpoint but reactive to light, conjunctivae normal, anicteric sclerae ENMT: external ear and nose normal, oropharynx normal,+ ET tube in place Neck: trachea midline, no thyromegaly normal visual inspection Respiratory: + ET Tube, decreased BS at bases, +Bibasilar crackles noted, no wheeze or rhonchi. Normal insp/exp effort, no accessory muscle use Cardiovascular: tachycardic rate, S1, S2, no murmur, no edema , b/l cool lower peripheral extremities, dusky venous stasis, good b/l pedal and radial pulse +2 noted Vessels: no JVD or carotid bruit Chest: normal inspection of chest, LACW central cath placed Abdomen: normal bowel sounds, soft, nontender, no hepatosplenomegaly Musculoskeletal: no cyanosis or clubbing noted. unable to assess MSK given sedated stated Skin: no rashes, warm and dry normal turgor Neurologic: unable to assess Psychiatric: sedated, unable to assess Lymphatic: no cervical or axillary lymphadenopathy : +parikh draining octavio urine Principal Diagnosis Contributing Factors (1) Sepsis with acute hypoxic respiratory failure and septic shock: (2) Influenza A: (3) Bilateral pneumonia: (4) Respiratory acidosis: (5) Afib: (6) Congestive heart failure: (7) Hypothyroidism Discharge Exam no pulse, no respirations, no heart sounds, pupils fixed and dilated and other (No babinsky signs, no withdrawn extremities with painful stimuli.) Discharge Data Allergies Allergy/AdvReac Type Severity Reaction Status Date / Time No Known Drug Allergies Allergy Verified 10/04/19 13:39 Consultations 10/04/19 14:38 ED Decision to Admit Stat 10/04/19 16:36 Consult Case Management - Discharge Planning Routine Consult Mortgage Processing Clerk Routine 10/06/19 21:15 Consult Case Management - Discharge Planning Routine Consult Palliative Care Routine Ordered Studies 10/04/19 13:42 CT abd pelvis wo con Stat CT chest wo con Stat SINGLE VIEW CHEST CLINICAL HISTORY: Respiratory failure. FINDINGS: An AP, portable, upright chest radiograph is compared to chest x-ray and chest CT dated 10/04/2019. The examination is degraded by portable technique and patient rotation. An endotracheal tube and a left subclavian central venous catheter are unchanged in position. The heart is enlarged noting atherosclerotic calcification of the thoracic aorta. There is pulmonary vascular congestion and mild interstitial edema. There is elevation of left hemidiaphragm with associated atelectasis. Small pleural effusions are identified with bibasilar consolidation. No pneumothorax is seen. The skeletal structures are osteopenic. The bony thorax is grossly intact. IMPRESSION: 1. Cardiomegaly with evidence of congestive failure and mild interstitial edema. 2. Small pleural effusions. 3. Bibasilar consolidation is unchanged. Correlate clinically for evidence of pneumonia. 4. Stable lines and tubes. ACT 112: Negative or not required by law. Electronically signed by: Pascual Hdz M.D. 10/05/2019 9:23 AM Dictated: 10/05/19920 Transcribed: 10/05/19920 Hospital Course (1) Sepsis with acute hypoxic respiratory failure and septic shock: (2) Influenza A: (3) Bilateral pneumonia: (4) Respiratory acidosis: Present to the ED after found unresponsive at [facility] CT chest showed left greater than right bibasilar consolidation suggests pneumonia or aspiration pneumonitis Influenza A PCR positive Self intubated today Continue IV abx with cefepime. Continue Tamiflu via NGT Off norepinephrine Blood cx no growth Mortgage Processing Clerk spoke to family, In the setting of any cardiac arrest and respiratory failure, no heroic management such as reintubation or trach Palliative care spoke to the sons Son Yaniv who is POA was made comfort measure only. Son understands that we will discontinue abx, IVF and unrelated meds Morphine and Ativan started for comfort Will transfer to medical floor (5) Afib: Rate has been btw 90 to 100's Continue Metoprolol Not on anticoagulant due to hx of GIB in 2018 (6) Congestive heart failure: Hx of chronic diastolic CHF CXR showed cardiomegaly with evidence of congestive failure and mild interstitial edema. Last echo 2018 EF 57%, LA severely enlarged, calcified AV, no stenosis Will consider to get an echo once clinically improves Lasix was discontinued on last admission at [facility] 09/24 Made comfort measure only (7) Hypothyroidism: D/C IV Levothyroxine since pt was made comfort care only (8) DVT prophylaxis: Heparin discontinued due to comfort care only Pronouncement Note Contributing Factors (1) Sepsis with acute hypoxic respiratory failure and septic shock: (2) Influenza A: (3) Bilateral pneumonia: (4) Respiratory acidosis: (5) Afib: (6) Congestive heart failure: (7) Hypothyroidism: (8) DVT prophylaxis: Summary Additional details: Nurse called that pt was at 1600. Nurse said that family was at bedside and just left the room. certificate completed and signed Additional Data Confirmation of : no pulse, no respirations, no heart sounds, pupils fixed and dilated and other (No babinsky signs, no withdrawn extremities with painful stimuli.) Total Time Total Time Spent Total Time Spent (In Minutes): 15 minutes Total Time Includes: Examination of the Patient, Discharge Planning, Medication Reconciliation, Communication With Other Providers and Other Discharge Plan Discharge Items Patient Disposition: Reason For Visit: ACUTE RESP FAILURE, B/1PNA,SEPTIC SHOCK, RESP ACID Follow-up/Referrals: Panfilo Unger MD [Primary Care Provider] - Admission Data Admit Date/Time: 10/04/19 14:37 Other DC Date/Time DO NOT enter until pt leaves facility: 10/07/19 18:39
== END 2019-10-07 18:39 | disposition expired | DRG 853 ==
LOC: ED 12:43 → SUATTDRO 14:37 → 1E 14:37 → 4W 10-07 15:18